=== PATIENT | female | born 1980 | race Caucasian/White ===

== ENCOUNTER 2016-12-28 10:22 | Outpatient (CLI) | payer MEDICAID | END 2016-12-28 10:23 | disposition home or self-care (01) | DX: Z13.9 Encounter for screening, unspecified (principal) ==

== ENCOUNTER 2018-01-07 08:00 | Outpatient (CLI) | payer MEDICAID ==
[2018-01-07 12:41] LABS: BASOPHILS % (AUTO) 0.3 %; EOSINOPHILS # (AUTO) 0.4 10^3/uL (0.0-0.7); EOSINOPHILS % (AUTO) 5.5 %; HGB - HEMOGLOBIN 13.7 g/dL (12.0-16.0); LYMPHOCYTES # (AUTO) 2.2 10^3/uL (1.5-3.5); LYMPHOCYTES % (AUTO) 34.5 %; MEAN CORPUSCULAR HEMOGLOBIN 28.3 pg (27.0-31.0); MEAN CORPUSCULAR HGB CONC 33.8 g/dL (32.0-36.0); MEAN CORPUSCULAR VOLUME 83.7 fL (81.0-99.0); MEAN PLATELET VOLUME 8.5 fL (7.9-10.8); MONOCYTES # (AUTO) 0.5 10^3/uL (0.0-1.0); MONOCYTES % (AUTO) 8.1 %; NEUTROPHILS # (AUTO) 3.3 10^3/uL (1.5-6.6); NEUTROPHILS % (AUTO) 51.6 %; PLT - PLATELET COUNT 154 10^3/uL (130-450); RED BLOOD COUNT 4.85 10^6/uL (4.20-5.40); RED CELL DISTRIBUTION WIDTH 12.6 % (12.0-15.0); WHITE BLOOD COUNT 6.4 x10^3/uL (4.8-10.8)
[2018-01-07 13:27] LABS: ALBUMIN/GLOBULIN RATIO 1.4 (1.0-2.2); ALKALINE PHOSPHATASE 60 IU/L (42-121); ALT ALANINE AMINOTRANSFERASE 12 IU/L (10-60); AST ASPARTATE AMINOTRANSFERASE 18 IU/L (10-42); BILIRUBIN,TOTAL 0.4 mg/dL (0.2-1.0); BUN - BLOOD UREA NITROGEN 8 mg/dL (6-20); CALCIUM 8.4 mg/dL (8.5-10.3); CARBON DIOXIDE - CO2 28 mmol/L (21-32); CHLORIDE 104 mmol/L (101-111); CHOL/HDL RATIO 4.7 (<4.4); CHOLESTEROL 166 mg/dL; CREATININE 0.5 mg/dL (0.4-1.0); GFR - MDRD 140 (>89); GLUCOSE 116 mg/dL (70-100); HDL CHOLESTEROL 35 mg/dL; LDL CHOLESTEROL,CALCULATED 108 mg/dL; LDL/HDL RATIO 3.1 (<4.4); SODIUM 139 mmol/L (135-145); TOTAL PROTEIN 6.9 g/dL (6.7-8.2); VLDL CHOLESTEROL 23 mg/dL
== END 2018-01-07 08:01 | disposition home or self-care (01) ==
LOC: LAB.N 08:00
PROVIDERS: ATTEND Nurse Practitioner Gerontology
DX: Z13.9 Encounter for screening, unspecified (principal)
CPT/HCPCS: 36415; 80053; 80061; 83721; 84443; 85025

== ENCOUNTER 2018-03-18 14:28 | Outpatient (CLI) | payer MEDICAID | END 2018-03-18 14:29 | disposition home or self-care (01) | LOC: LAB.R 14:28 | PROVIDERS: ATTEND Nurse Practitioner Gerontology | DX: R19.7 Diarrhea, unspecified (principal) | CPT/HCPCS: 83630; 87045; 87046; 87177; 87209; 87493 ==

== ENCOUNTER 2018-08-15 13:14 | Emergency (ER) | payer MEDICAID ==
[2018-08-15 13:42] LABS: BILIRUBIN,URINE NEGATIVE (NEGATIVE); GLUCOSE, URINE (UA) NEGATIVE (NEGATIVE); KETONES,URINE (UA) NEGATIVE (NEGATIVE); LEUKOCYTE ESTERASE, URINE NEGATIVE (NEGATIVE); NITRITE,URINE NEGATIVE (NEGATIVE); OCCULT BLOOD,URINE NEGATIVE (NEGATIVE); PROTEIN,URINE NEGATIVE (NEGATIVE); UROBILINOGEN,URINE 0.2 (NORMAL) E.U./dL (NORMAL)
[2018-08-15 13:47] LABS: CLARITY,URINE CLEAR (CLEAR); HCG UR QUAL NEGATIVE
--- NOTE | 2018-08-15 15:50 | ED Physician Documentation ---
PD HPI ABD PAIN - Stated complaint Stated Complaint: ABD PX - Chief complaint Chief Complaint: Abd Pain - History obtained from History obtained from: Patient - History of Present Illness Timing - onset: How many days ago (7-8) Timing - duration: Weeks (1) Timing - details: Gradual onset, Still present, Waxing and waning Quality: Cramping, Aching, Pain. No: Fullness/distended Location: Suprapubic, LLQ Radiation: Lower back Improved by: BM (has feeling of fullness in rectum/lower abd with BMs but just soft stool and some mucous/trace blood out). No: Eating Worsened by: No: Eating Associated symptoms: Hematochezia (trace bloody, mucous). No: Fever, Nausea, Vomiting, Constipation, Near syncope / syncope Similar symptoms before: Has not had sx before Review of Systems Constitutional: reports: Fatigue. denies: Fever, Chills, Myalgias Nose: denies: Rhinorrhea / runny nose, Congestion Throat: denies: Sore throat Cardiac: denies: Chest pain / pressure, Palpitations Respiratory: denies: Dyspnea, Cough GI: reports: Abdominal Pain, Nausea, Diarrhea (soft stools). denies: Abdominal Swelling, Vomiting, Constipation : reports: Dysuria. denies: Frequency, Discharge Skin: denies: Rash Musculoskeletal: reports: Back pain. denies: Neck pain Neurologic: reports: Generalized weakness. denies: Focal weakness, Numbness, Near syncope, Altered mental status PD PAST MEDICAL HISTORY - Past Medical History Cardiovascular: None Respiratory: None Neuro: None GI: None Psych: Depression, Anxiety Musculoskeletal: Chronic back pain - Past Surgical History Past Surgical History: No Ortho: Other - Present Medications Home Medications: Ambulatory Orders Medication Instructions Recorded Confirmed Hydrocodone/Acetaminophen [[place] 1 each PO Q6H PRN #15 tablet 06/07/15 5-325 Tablet] Ibuprofen 600 mg PO TID #20 tablet 06/07/15 Methocarbamol [Robaxin] 500 mg PO Q6H PRN #20 tablet 06/07/15 Cephalexin [Keflex] 500 mg PO TID #21 capsule 08/15/18 Metronidazole [Flagyl] 500 mg PO BID #14 tablet 08/15/18 Naproxen 375 mg PO BID #20 tablet 08/15/18 Ondansetron Odt [Zofran] 4 mg TL Q6H PRN #15 tablet 08/15/18 Oxycodone HCl/Acetaminophen 1 each PO Q6H PRN #20 tablet 08/15/18 [Percocet 5-325 mg Tablet] - Allergies Allergies/Adverse Reactions: Allergies Allergy/AdvReac Type Severity Reaction Status Date / Time No Known Drug Allergies Allergy Verified 08/15/18 13:28 - Social History Does the pt smoke?: No Smoking Status: Never smoker Does the pt drink ETOH?: No - Immunizations Immunizations are current?: Yes PD ED PE NORMAL - Vitals Vital signs reviewed: Yes - General General: Alert and oriented X 3, Well developed/nourished, Other (appears in pain) - HEENT HEENT: Pharynx benign - Neck Neck: Supple, no meningeal sign, No adenopathy - Cardiac Cardiac: RRR (mild tachycardic), No murmur - Respiratory Respiratory: Clear bilaterally - Abdomen Abdomen: Normal bowel sounds, Soft, Non distended, No organomegaly, Other (tender suprapubic and LLQ area without percussion nor rebound tenderness. ) - Rectal Rectal: Deferred - Back Back: No CVA TTP - Derm Derm: Normal color, Warm and dry - Extremities Extremities: No deformity, No tenderness to palpate, No edema, No calf tenderness / cord - Neuro Neuro: Alert and oriented X 3, No motor deficit, Normal speech Results - Vitals Vitals: Vital Signs - 24 hr 08/15/18 08/15/18 13:25 18:05 Temperature 36.3 C L Heart Rate 102 H 89 Respiratory 15 18 Rate Blood Pressure 125/85 H 118/82 H O2 Saturation 98 98 Oxygen O2 Source Room air - Labs Labs: Laboratory Tests 08/15/18 08/15/18 08/15/18 17:30 17:30 Unknown WBC 10.3 RBC 4.65 Hgb 13.5 Hct 39.4 MCV 84.9 MCH 29.1 MCHC 34.3 RDW 12.6 Plt Count 179 MPV 8.2 Neut # (Auto) 6.2 Lymph # (Auto) 3.3 [place] # (Auto) 0.6 Eos # (Auto) 0.2 Baso # (Auto) 0.0 Absolute Nucleated RBC 0.01 Nucleated RBC % 0.0 Sodium 139 Potassium 3.7 Chloride 103 Carbon Dioxide 27 Anion Gap 9.0 BUN 7 Creatinine 0.6 Estimated GFR (MDRD) 112 Glucose 96 Calcium 8.6 Total Bilirubin 0.5 AST 14 ALT 11 Alkaline Phosphatase 69 Total Protein 6.8 Albumin 3.9 Globulin 2.9 Albumin/Globulin Ratio 1.3 Lipase 24 Urine Color YELLOW Urine Clarity CLEAR Urine pH 6.0 Ur Specific [place] <=1.005 Urine Protein NEGATIVE Urine Glucose (UA) NEGATIVE Urine Ketones NEGATIVE Urine Occult Blood NEGATIVE Urine Nitrite NEGATIVE Urine Bilirubin NEGATIVE Urine Urobilinogen 0.2 (NORMAL) Ur Leukocyte Esterase NEGATIVE Ur Microscopic Review NOT INDICATED Urine Culture Comments NOT INDICATED Urine HCG, Qual NEGATIVE - Rads (name of study) abd/pelvic CT Radiology: Prelim report reviewed, Discussed with rads (There is a segment of thickened wall of the colon in the descending colon that could be consistent with colitis or concerning for neoplasm. There is a suggestion of some involuting of the colon into itself, or an early intussuscept of appearance. There is no obstruction pattern however.) PD MEDICAL DECISION MAKING - ED course Complexity details: reviewed results, re-evaluated patient (She is having much less pain after some medications here. She is driving home so no sedating medicines were given. We discussed the CT findings. She is to return if she has significant pain increase, vomiting, bloating, fever, other concerns. Otherwise she is to follow-up with Dr. Snell early this coming week and we will treated as infectious colitis at this point.), considered differential, d/w patient, d/w strategic planning consultant (Margarito Snell, surgery - Who felt that with the patient not having severe pain or obstruction pattern that the involuting findings on the CT scan were transient and not indicative of true intussusception. He said this is an episodic transient finding on CT scans. He is concerned however about the segmental colitis and wall thickening and does feel the patient needs follow-up early this coming week for scheduled colonoscopy to better evaluate that.) Departure - Departure Disposition: 01 Home, Self Care Clinical Impression: Colitis, acute Abdominal pain Qualifiers: Abdominal location: lower abdomen, unspecified Qualified Code(s): R10.30 - Lower abdominal pain, unspecified Condition: Stable Record reviewed to determine appropriate education?: Yes Instructions: Abdominal Pain Follow-Up: Ami Burroughs ARNP [Primary Care Provider] - Margarito Snell MD [Provider Admit Priv/Credential] - Prescriptions: Cephalexin [Keflex] 500 mg PO TID #21 capsule Metronidazole [Flagyl] 500 mg PO BID #14 tablet Naproxen 375 mg PO BID #20 tablet Ondansetron Odt [Zofran] 4 mg TL Q6H PRN #15 tablet PRN Reason: Nausea / Vomiting Oxycodone HCl/Acetaminophen [Percocet 5-325 mg Tablet] 1 each PO Q6H PRN #20 tablet PRN Reason: Pain Comments: Drink lots of fluids. Soft foods for the next several days. Use naproxen anti- inflammatory twice daily for the next 7-10 days. Take it with some food so it does not upset your stomach. Metronidazole and cephalexin antibiotics as directed for the next week for the presumed infection of the colon wall. Ondansetron if needed for nausea. Tylenol or Percocet if needed for pains. Contact Dr. Snell's office Saturday and let them know that you were seen in the ER and we had talked with Dr. Snell and he certainly wants you to have an appointment early this coming week for follow-up evaluation and urgent colonoscopy to further evaluate the colitis. Return to the ER if you have significantly worsening pain, fever, bloating or vomiting, other concerns. Discharge Date/Time: 08/15/18 19:57
[2018-08-15] MEDS ORDERED: KETOROLAC 60 MG/2 ML VIAL IVP STA (16:05)
[2018-08-15 17:56] LABS: BASOPHILS % (AUTO) 0.4 %; EOSINOPHILS # (AUTO) 0.2 10^3/uL (0.0-0.7); HGB - HEMOGLOBIN 13.5 g/dL (12.0-16.0); LYMPHOCYTES # (AUTO) 3.3 10^3/uL (1.5-3.5); LYMPHOCYTES % (AUTO) 31.7 %; MEAN CORPUSCULAR HEMOGLOBIN 29.1 pg (27.0-31.0); MEAN CORPUSCULAR HGB CONC 34.3 g/dL (32.0-36.0); MEAN CORPUSCULAR VOLUME 84.9 fL (81.0-99.0); MEAN PLATELET VOLUME 8.2 fL (7.9-10.8); MONOCYTES # (AUTO) 0.6 10^3/uL (0.0-1.0); MONOCYTES % (AUTO) 5.7 %; NEUTROPHILS # (AUTO) 6.2 10^3/uL (1.5-6.6); NEUTROPHILS % (AUTO) 60.2 %; PLT - PLATELET COUNT 179 10^3/uL (130-450); RED BLOOD COUNT 4.65 10^6/uL (4.20-5.40); RED CELL DISTRIBUTION WIDTH 12.6 % (12.0-15.0); WHITE BLOOD COUNT 10.3 x10^3/uL (4.8-10.8)
[2018-08-15 18:05] VITALS: BP 118/82
[2018-08-15] MEDS ORDERED: IOPAMIDOL-300 100 ML VIAL ONE (18:09)
[2018-08-15 18:10] LABS: ALBUMIN 3.9 g/dL (3.2-5.5); ALBUMIN/GLOBULIN RATIO 1.3 (1.0-2.2); BILIRUBIN,TOTAL 0.5 mg/dL (0.2-1.0); CALCIUM 8.6 mg/dL (8.5-10.3); CREATININE 0.6 mg/dL (0.4-1.0); TOTAL PROTEIN 6.8 g/dL (6.7-8.2)
[2018-08-15] MEDS ORDERED: IOPAMIDOL-300 100 ML VIAL IVP ONE (18:27)
--- NOTE | 2018-08-15 19:22 | CT Report ---
Reason: lower abd pain for several days Procedure Date: 08/15/2018 Accession Number: [id number] / [id number] Procedure: CT - Abdomen/Pelvis W/ CPT Code: FULL RESULT: EXAM: CT ABDOMEN AND PELVIS EXAM DATE: 08/15/2018 06:33 PM. CLINICAL HISTORY: Lower abdominal pain for several days. COMPARISONS: None. TECHNIQUE: Routine helical CT imaging was performed through the abdomen and pelvis. IV contrast: ISOVUE 300 100mL. Enteric contrast: No. Reconstructions: Coronal and sagittal. In accordance with CT protocol optimization, one or more of the following dose reduction techniques were utilized for this exam: automated exposure control, adjustment of mA and/or KV based on patient size, or use of iterative reconstructive technique. FINDINGS: Lung Bases: Unremarkable. Liver: Normal. No masses. Gallbladder/Bile Ducts: Unremarkable. Spleen: Normal. Pancreas: Normal. Adrenal Glands: Normal. Kidneys: Normal. No masses or hydronephrosis. Peritoneal Cavity/Bowel: There is a short segment of circumferential mural thickening involving the mid descending colon suspicious for tumor. There may be a partial intussusception of the colon at this level. No upstream bowel obstruction. At least 2 adjacent subcentimeter mesenteric lymph nodes are seen. The appendix is well visualized and normal. Pelvic Organs: Normal. The bladder and visualized pelvic organs are within normal limits. Vasculature: No aneurysms or other significant abnormality. Bones: No significant abnormality. Other: None. IMPRESSION: 1. Short segment of circumferential mural thickening involving the mid descending colon suspicious for neoplasm. There may also be a partial intussusception involving this segment of bowel. No upstream bowel obstruction. 2. The solid abdominal viscera are unremarkable. RADIA The above findings were discussed with Pepe Fowler by Dr. Lázaro Doyle at 19:20 hrs on 08/15/18.
[2018-08-15] MEDS ORDERED: metroNIDAZOLE 250 MG TABLET PO STA (19:45)
[2018-08-15] MEDS ORDERED: ONDANSETRON ODT 4 MG TABLET TL STA (19:45)
[2018-08-15] MEDS ORDERED: cephALEXin 250 MG CAPSULE PO STA (19:45)
== END 2018-08-15 19:57 | disposition home or self-care (01) ==
LOC: ED 13:14
DX: K52.9 Noninfective gastroenteritis and colitis, unspecified (principal)
CPT/HCPCS: 36415; 74177; 80053; 81003; 81025; 83690; 85025; 96374; 99283; 99284; A9270; Q0162; Q9967; 81001; 87086

== ENCOUNTER 2018-08-21 12:57 | Day surgery (SDC) | payer MEDICAID ==
[2018-08-21 13:27] LABS: HCG UR QUAL NEGATIVE
[2018-08-21] MEDS ORDERED: LACTATED RINGERS 1,000 ML IV ONE (13:42)
[2018-08-21] MEDS ORDERED: fentaNYL 250 MCG/5 ML VIAL IVP ONE (15:11)
[2018-08-21] MEDS ORDERED: MIDAZOLAM 2 MG/2 ML VIAL IVP ONE (15:11)
[2018-08-21 16:33] VITALS: BP 114/81
== END 2018-08-21 12:58 | disposition home or self-care (01) ==
LOC: SDS 12:57
PROVIDERS: ATTEND Internal Medicine Gastroenterology
PROC: 0DBM8ZX Excision of Descending Colon, Via Natural or Artificial Opening Endoscopic, Diagnostic (ICD-10-PCS; principal; 2018-08-21 14:00)
DX: C18.6 Malignant neoplasm of descending colon (principal); K30 Functional dyspepsia; J45.909 Unspecified asthma, uncomplicated; G44.209 Tension-type headache, unspecified, not intractable; E66.9 Obesity, unspecified; Z68.33 Body mass index [BMI] 33.0-33.9, adult; G47.00 Insomnia, unspecified; Z86.69 Personal history of other diseases of the nervous system and sense organs; Z79.51 Long term (current) use of inhaled steroids
CPT/HCPCS: 36415; 45380; 81025; 82378; J3010; J7120

== ENCOUNTER 2018-08-25 08:34 | Outpatient (CLI) | payer MEDICAID ==
[2018-08-25] MEDS ORDERED: IOPAMIDOL-300 100 ML VIAL ONE (08:40)
[2018-08-25] MEDS ORDERED: IOPAMIDOL-300 100 ML VIAL IVP ONE (09:22)
--- NOTE | 2018-08-25 09:31 | CT Report ---
Reason: STAGING FOR COLON CANCER Procedure Date: 08/25/2018 Accession Number: [id number] / [id number] Procedure: CT - Chest W/ CPT Code: FULL RESULT: EXAM: CT CHEST EXAM DATE: 08/25/2018 09:04 AM. CLINICAL HISTORY: STAGING FOR COLON CANCER. COMPARISONS: None. TECHNIQUE: Routine helical CT imaging was performed through the chest. IV contrast: None. Reconstructions: Coronal and sagittal. In accordance with CT protocol optimization, one or more of the following dose reduction techniques were utilized for this exam: automated exposure control, adjustment of mA and/or KV based on patient size, or use of iterative reconstructive technique. FINDINGS: Lungs/Pleura: No nodules, bronchial thickening, consolidation, or edema. Pulmonary vasculature is normal. No pericardial or pleural effusion. No pneumothorax. Mediastinum: Normal. No adenopathy or masses. The heart and great vessels are normal. Bones: Unremarkable. Visualized Abdomen: Unremarkable. Other: None. IMPRESSION: Normal chest CT. No evidence for thoracic metastatic disease. RADIA
== END 2018-08-25 08:35 | disposition home or self-care (01) ==
LOC: DI 08:34
PROVIDERS: ATTEND Internal Medicine Gastroenterology
DX: C18.9 Malignant neoplasm of colon, unspecified (principal)
CPT/HCPCS: 71260; Q9967

== ENCOUNTER 2018-09-08 05:44 | Inpatient (IN) | payer MEDICAID ==
[2018-09-08] MEDS ORDERED: LACTATED RINGERS 1,000 ML IV ONE ×2 (06:15→10:24)
[2018-09-08] MEDS ORDERED: ceFAZolin 2 GM/50 ML 2 GM/50 ML BAG IV ONE (06:34)
[2018-09-08] MEDS ORDERED: metroNIDAZOLE 500 MG/100 ML 500 MG/100 ML BAG ONE (06:34)
[2018-09-08] MEDS ORDERED: LIDOCAINE 1% 50 ML MDV ONE (07:05)
[2018-09-08] MEDS ORDERED: BUPIVACAINE 0.5%-EPI 1:200000 PF 30 ML VIAL ONE (07:05)
--- NOTE | 2018-09-08 07:09 | ANESTHESIA ---
Pre-Anesthesia VS, & Labs - Diagnosis descending colon cancer - Procedure laparoscopic partial sigmoid colectomy Vital Signs: Temp Pulse Resp BP Pulse Ox 36.1 C L 83 16 125/85 H 100 09/08/18 06:30 09/08/18 06:30 09/08/18 06:30 09/08/18 06:30 09/08/18 06:30 Height 5 ft 7 in Weight (kg) 94 kg Body Mass Index 31.3 - NPO >8 hours - Is Patient ?: Waiver signed - Lab Results Lab results reviewed: Yes Home Medications and Allergies Home Medications: Ambulatory Orders Metronidazole 500 mg PO TID 09/08/18 Neomycin Sulfate 500 mg PO TID 09/08/18 Metronidazole 500 mg PO TID 09/08/18 Neomycin Sulfate 500 mg PO TID 09/08/18 Allergies/Adverse Reactions: Allergies Allergy/AdvReac Type Severity Reaction Status Date / Time No Known Drug Allergies Allergy Verified 08/15/18 13:28 Anes History & Medical History - Anesthetic History Anesthesia Complications: reports: No previous complications Family history of Anesthesia Complications: Denies Family history of Malignant Hyperthermia: Denies - Medical History Cardiovascular: reports: None Pulmonary: reports: None Gastrointestinal: reports: Ulcers, Other Urinary: reports: None Neuro: reports: None Musculoskeletal: reports: Chronic back pain Endocrine/Autoimmune: reports: None Skin: reports: None Smoking Status: Never smoker - Surgical History General: Colonoscopy Orthopedic: Other Exam General: Alert, Oriented x3 Dental: WNL Mouth Openin Fingerbreadth Mallampati classification: III Thyromental Distance: 4-6 cm Respiratory: Lungs clear, Normal breath sounds, No respiratory distress, No accessory muscle use Cardiovascular: Regular rate, Normal S1, Normal S2, No murmurs Mental/Cognitive Status: Alert/Oriented X3, Normal for patient Cognitive Status: Within normal limits Plan Anesthesia Type: General Consent for Procedure(s) Verified and Reviewed: Yes Code Status: Attempt Resuscitation ASA classification: 2-Mild systemic disease Is this case an emergency?: No
[2018-09-08] MEDS ORDERED: LIDOCAINE 1% 10 ML MDV SUBQ ONE ×2 (08:25)
[2018-09-08] MEDS ORDERED: BUPIVACAINE 0.5%-EPI 1:200000 PF 30 ML VIAL SUBQ ONE ×2 (08:26)
[2018-09-08] MEDS ORDERED: ONDANSETRON 4 MG/2 ML VIAL IVP ONE (09:00)
[2018-09-08] MEDS ORDERED: KETOROLAC 30 MG/ML VIAL IVP ONE (09:00)
[2018-09-08] MEDS ORDERED: ceFAZolin 2 GM/50 ML BAG IV ONE (09:00)
[2018-09-08] MEDS ORDERED: fentaNYL 100 MCG/2 ML VIAL IVP ONE (09:00)
[2018-09-08] MEDS ORDERED: LIDOCAINE-MPF 2% 5 ML VIAL IM ONE (09:00)
[2018-09-08] MEDS ORDERED: ROCURONIUM 50 MG/5 ML VIAL IVP ONE (09:00)
[2018-09-08] MEDS ORDERED: ACETAMINOPHEN 1,000 MG/100 ML 100 ML IV ONE (09:00)
[2018-09-08] MEDS ORDERED: metroNIDAZOLE 500 PREMIX IV ONE (09:00)
[2018-09-08] MEDS ORDERED: PROPOFOL 200 MG/20 ML VIAL IVP ONE (09:00)
[2018-09-08] MEDS ORDERED: MORPHINE 10 MG/ML VIAL IVP ONE (09:00)
--- NOTE | 2018-09-08 10:49 | OPERATIVE REPORT ---
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 Oral gastric and trinh catheters were inserted. Her abdomen was prepped with Cloroprep solution and draped in the usual sterile fashion. Preop preparation included placement of SCDs and administration of 2 gm of cefazolin and 500 mg of metronidazole IV within 60 minutes of the incision. A 2 cm vertical infraumbilical incision was made and carrried down through the layers of the abdominal wall until the peritoneum was identified and entered sharply. Hemostasis was achieved with electrocautery. A Fuentes cannula was inserted and pneumoperitoneum was achieved with carbon dioxide. A 5 mm 30 degree Kennedy telescope was inserted and laparoscopy was carried out with findings of a normal appearing liver and stomach, and visualized small bowel and omentum. There were no peritoneal implants, ascites or evidence of liver metast ases. 5mm ports were placed in the midepigastrium and right lower quadrant. Pt was placed in partial right lateral decubitus position and the tumor in the descending colon became visible. It showed no gross evidence of extension to adjacent structures but did appear to be transmural at at least one point grossly. The descending colon, proximal sigmoid colon and spenic flexure were mobilized using the ligasure device and gentle blunt traction, mobilizing the distal descending colon sufficient to reach the midline. The Fuentes port was removed and the lower midline incision enlarged to approximately 5 cm in length. A SILS port was placed and the colon adjacent to the tumor was grasped and gently exteriorized through the SILS port incision. An extracorporeal resection and anastomosis was then performed. Margins were chosen 5 cm proximal and distal to the gross margins of the tumor, and the colon was circumferentially mobilized at these points, and the 75 mm linear stapler/cutting device was used to ligate and divide the bowel at these points. The mesentery was ligated and divided near its base using the Ligasure device. There was no gross evidence of lymphadenopathy. The specimen was sent to pathology. A hand sewn end to end anastomosis was then performed in 2 layers, using interruped 3-0 silk sutures for the outer seromuscular layer and continuous locking 3-0 Vicryl for a full th ickness inner layer. Once completed the anastomosis appeared intact, viable, and without tension. The mesenteric defect was wide and was not closed. Gowns, gloves and insturments were changed, the abdominal cavity was copiously irrigated with sterile saline solution, laparoscopic instuments were removed, and the incisions were closed, using 0 PDS for closure of the midline fascia at the infraumbilical incsion, followed by 3-0 Vicryl for subcutaneous tissue closure, followed by 4-0 Monocryl for a subcuticular skin closure and Dermabond at all the incisions. Anesthesia was terminated and pt transferred to the PAR unit in satisfactory condition. Sponge, needle, and instrument counts were correct x 2. No drains were used.
[2018-09-08] MEDS ORDERED: ONDANSETRON 4 MG/2 ML VIAL ONE (11:35)
[2018-09-08] MEDS: SODIUM CHLORIDE FLUSH 0.9% 10 ML SYRINGE IVP PRN ×2 (13:01→14:17)
[2018-09-08] MEDS: ACETAMINOPHEN 1,000 MG/100 ML 100 ML IV SCH ×3 (13:12→22:46)
[2018-09-08] MEDS: LACTATED RINGERS 1,000 ML IV SCH ×2 (13:13→23:44)
[2018-09-08] MEDS: KETOROLAC 30 MG/ML VIAL IVP PRN ×2 (14:17→20:27)
[2018-09-08] MEDS: SODIUM CHLORIDE FLUSH 0.9% 10 ML SYRINGE IVP SCH (16:05)
[2018-09-08] MEDS: ONDANSETRON 4 MG/2 ML VIAL IVP PRN (16:05)
[2018-09-08] MEDS: METOCLOPRAMIDE 10 MG/2 ML VIAL IVP PRN ×3 (17:42→23:52)
[2018-09-08] MEDS: ENOXAPARIN 40 MG/0.4 ML SYRINGE SUBQ SCH (20:26)
[2018-09-08] MEDS: oxyCODONE 5 MG TABLET PO PRN (22:46)
[2018-09-09] MEDS: SODIUM CHLORIDE FLUSH 0.9% 10 ML SYRINGE IVP SCH ×3 (01:48→17:20)
[2018-09-09] MEDS: KETOROLAC 30 MG/ML VIAL IVP PRN ×3 (02:20→17:16)
[2018-09-09] MEDS: oxyCODONE 5 MG TABLET PO PRN ×2 (05:03→17:48)
[2018-09-09] MEDS: ONDANSETRON 4 MG/2 ML VIAL IVP PRN (05:05)
[2018-09-09] MEDS: ACETAMINOPHEN 1,000 MG/100 ML 100 ML IV SCH ×3 (05:06→20:17)
[2018-09-09 05:59] LABS: BASOPHILS % (AUTO) 0.2 %; EOSINOPHILS % (AUTO) 0.1 %; HGB - HEMOGLOBIN 11.4 g/dL (12.0-16.0); LYMPHOCYTES % (AUTO) 16.4 %; MEAN CORPUSCULAR HEMOGLOBIN 28.7 pg (27.0-31.0); MEAN CORPUSCULAR HGB CONC 33.2 g/dL (32.0-36.0); MEAN CORPUSCULAR VOLUME 86.5 fL (81.0-99.0); MEAN PLATELET VOLUME 8.2 fL (7.9-10.8); MONOCYTES # (AUTO) 0.8 10^3/uL (0.0-1.0); MONOCYTES % (AUTO) 6.8 %; NEUTROPHILS # (AUTO) 9.4 10^3/uL (1.5-6.6); NEUTROPHILS % (AUTO) 76.5 %; PLT - PLATELET COUNT 164 10^3/uL (130-450); RED BLOOD COUNT 3.97 10^6/uL (4.20-5.40); RED CELL DISTRIBUTION WIDTH 12.7 % (12.0-15.0); WHITE BLOOD COUNT 12.3 x10^3/uL (4.8-10.8)
[2018-09-09 06:20] LABS: ALBUMIN 3.2 g/dL (3.2-5.5); ALBUMIN/GLOBULIN RATIO 1.4 (1.0-2.2); ALKALINE PHOSPHATASE 56 IU/L (42-121); ALT ALANINE AMINOTRANSFERASE < 10 IU/L (10-60); AST ASPARTATE AMINOTRANSFERASE 14 IU/L (10-42); BILIRUBIN,TOTAL 0.6 mg/dL (0.2-1.0); BUN - BLOOD UREA NITROGEN < 5 mg/dL (6-20); CALCIUM 8.1 mg/dL (8.5-10.3); CARBON DIOXIDE - CO2 28 mmol/L (21-32); CHLORIDE 105 mmol/L (101-111); CREATININE 0.6 mg/dL (0.4-1.0); GFR - MDRD 112 (>89); GLUCOSE 116 mg/dL (70-100); SODIUM 138 mmol/L (135-145); TOTAL PROTEIN 5.5 g/dL (6.7-8.2)
--- NOTE | 2018-09-09 08:50 | PROVIDER PROGRESS NOTE ---
Subjective - General Admit Date: 09/08/18 Procedure Date: 09/08/18 Post Op Days: 1 Procedure Performed: Lap partial left colectomy - Review of Systems Wound/Incisions: positive: Healing well, No drainage General: positive: No symptoms Pulmonary: positive: No symptoms Cardiovascular: positive: No symptoms Gastrointestinal: positive: Nausea (N/V yesterday pm, now resolved), Vomiting (yest pm; now resolved) Musculoskeletal: positive: No symptoms - Other Other Information/Narrative: Had trouble with PO N/V yesterday, now feels much better, hungry, minimal incisional discomfort. Tolerating clear liquids well now. Objective - Patient Data Reviewed Vital Signs: Yes Vital Signs: Vital Signs x48h Temp Pulse Resp BP Pulse Ox 09/09/18 07:55 37.0 C 86 18 104/63 96 09/09/18 04:54 36.4 C L 92 17 103/69 96 Weight: Weight 09/07/18 09/08/18 09/09/18 23:59 23:59 23:59 Weight (kg) 94 kg Intake & Output: Intake and Output Totals x24h 09/07/18 09/08/18 09/09/18 23:59 23:59 23:59 Intake Total 3496.385 300 Output Total 1890 650 Balance 1606.385 -350 - Lab Results Lab Results: 09/09/18 05:18 09/09/18 05:18 Other Lab Results: Lab Results x24hrs 09/09/18 09/09/18 Range/Units 05:18 05:18 WBC 12.3 H (4.8-10.8) x10^3/uL RBC 3.97 L (4.20-5.40) 10^6/uL Hgb 11.4 L (12.0-16.0) g/dL Hct 34.3 L (37.0-47.0) % MCV 86.5 (81.0-99.0) fL MCH 28.7 (27.0-31.0) pg MCHC 33.2 (32.0-36.0) g/dL RDW 12.7 (12.0-15.0) % Plt Count 164 (130-450) 10^3/uL MPV 8.2 (7.9-10.8) fL Neut # (Auto) 9.4 H (1.5-6.6) 10^3/uL Lymph # (Auto) 2.0 (1.5-3.5) 10^3/uL [place] # (Auto) 0.8 (0.0-1.0) 10^3/uL Eos # (Auto) 0.0 (0.0-0.7) 10^3/uL Baso # (Auto) 0.0 (0.0-0.1) 10^3/uL Absolute Nucleated RBC 0.00 x10^3/uL Nucleated RBC % 0.0 /100WBC Sodium 138 (135-145) mmol/L Potassium 3.3 L (3.5-5.0) mmol/L Chloride 105 (101-111) mmol/L Carbon Dioxide 28 (21-32) mmol/L Anion Gap 5.0 L (6-13) BUN < 5 L (6-20) mg/dL Creatinine 0.6 (0.4-1.0) mg/dL Estimated GFR (MDRD) 112 (>89) Glucose 116 H (70-100) mg/dL Calcium 8.1 L (8.5-10.3) mg/dL Total Bilirubin 0.6 (0.2-1.0) mg/dL AST 14 (10-42) IU/L ALT < 10 L (10-60) IU/L Alkaline Phosphatase 56 (42-121) IU/L Total Protein 5.5 L (6.7-8.2) g/dL Albumin 3.2 (3.2-5.5) g/dL Globulin 2.3 (2.1-4.2) g/dL Albumin/Globulin Ratio 1.4 (1.0-2.2) - Current Medications Current Medications: Current Medications Generic Name Dose Route Start Last Admin Trade Name Freq PRN Reason Stop Dose Admin Enoxaparin Sodium 40 mg 09/08/18 20:00 09/08/18 20:26 Lovenox SUBQ 40 mg DAILY MARIXA Administration Acetaminophen 100 mls @ 400 mls/hr 09/08/18 11:00 09/09/18 05:32 Ofirmev IV Infused Q6H MARIXA Infusion Ketorolac Tromethamine 30 mg 09/08/18 10:37 09/09/18 02:20 Toradol Inj (30mg) IVP 09/13/18 10:36 30 mg Q6H PRN Administration PAIN Metoclopramide HCl 10 mg 09/08/18 17:36 09/08/18 23:52 Reglan Inj IVP 10 mg Q2HR PRN Administration Nausea / Vomiting Ondansetron HCl 4 mg 09/08/18 10:37 09/09/18 05:05 Zofran Inj IVP 4 mg Q6H PRN Administration Nausea / Vomiting Oxycodone HCl 5 mg 09/08/18 10:37 09/09/18 05:03 Roxicodone PO 5 mg Q4HR PRN Administration Pain or Fever > 38C (100.4F) Sodium Chloride 10 ml 09/08/18 17:00 09/09/18 01:48 Normal Saline Flush 0.9% IVP Not Given 0100,0900,1700 MARIXA Sodium Chloride 10 ml 09/08/18 10:37 09/08/18 14:17 Normal Saline Flush 0.9% IVP 10 ml PRN PRN Administration NEEDED PER PROVIDER ORDERS - Physical Exam Wound/Incisions: positive: Healing well, No drainage General Appearance: positive: No acute distress, Alert Eyes Bilateral: positive: Normal inspection ENT: positive: ENT inspection nml Neck: positive: Nml inspection Respiratory: positive: Chest non-tender, No respiratory distress, Breath sounds nml Cardiovascular: positive: Regular rate & rhythm, No murmur, No gallop Abdomen: positive: No organomegaly, Nml bowel sounds (active bowel tones), No distention, Tenderness (mild incisional tenderness) Back: positive: Nml inspection Extremities: positive: Non-tender, Nml appearance, No pedal edema. negative: Calf tenderness Neurologic/Psychiatric: positive: Oriented x3 ABX Reporting Has patient been on IV antibiotics over the past 48 hours?: No Impression/Plan - Problem List Problem List: PO Day 1 s/p lap partial left colectomy; doing well. Plan: advance diet and activity as tolerated; d/c trinh. D/c ivf.
[2018-09-09] MEDS: METOCLOPRAMIDE 10 MG/2 ML VIAL IVP PRN ×2 (08:55→16:07)
[2018-09-09] MEDS: POLYETHYLENE GLYCOL 3350 17 GM PACKET PO SCH (08:55)
[2018-09-09] MEDS: ENOXAPARIN 40 MG/0.4 ML SYRINGE SUBQ SCH (09:20)
[2018-09-09] MEDS ORDERED: ALBUTEROL NEB 2.5 MG/3 ML INH PRN (11:31)
[2018-09-09] MEDS: SODIUM CHLORIDE FLUSH 0.9% 10 ML SYRINGE IVP PRN (20:17)
[2018-09-10] MEDS: METOCLOPRAMIDE 10 MG/2 ML VIAL IVP PRN (00:22)
[2018-09-10] MEDS: ACETAMINOPHEN 1,000 MG/100 ML 100 ML IV SCH ×4 (00:27→20:20)
[2018-09-10] MEDS: SODIUM CHLORIDE FLUSH 0.9% 10 ML SYRINGE IVP SCH ×3 (00:31→17:51)
[2018-09-10] MEDS: SODIUM CHLORIDE FLUSH 0.9% 10 ML SYRINGE IVP PRN ×5 (00:44→20:20)
[2018-09-10] MEDS: KETOROLAC 30 MG/ML VIAL IVP PRN ×3 (05:36→17:51)
--- NOTE | 2018-09-10 07:25 | PROVIDER PROGRESS NOTE ---
Subjective - General Admit Date: 09/08/18 Procedure Date: 09/08/18 Post Op Days: 2 Procedure Performed: Lap partial left colectomy - Review of Systems Wound/Incisions: positive: Healing well, No drainage General: positive: No symptoms, Appetite (tolerating liquids well) Pulmonary: positive: No symptoms Cardiovascular: positive: No symptoms Gastrointestinal: positive: Abdominal pain (incisional, well controlled with non narcotic parenteral analgesics). negative: Flatus (no flatus or stool yet) Genitourinary: positive: No symptoms (voiding well) Musculoskeletal: positive: No symptoms Psychiatric: positive: No symptoms Objective - Patient Data Reviewed Vital Signs: Yes Vital Signs: Vital Signs x48h Temp Pulse Resp BP Pulse Ox 09/10/18 00:10 36.7 C 87 16 121/69 94 Weight: Weight 09/08/18 09/09/18 09/10/18 23:59 23:59 23:59 Weight (kg) 94 kg Intake & Output: Intake and Output Totals x24h 09/08/18 09/09/18 09/10/18 23:59 23:59 23:59 Intake Total 3496.385 2220 200 Output Total 1890 650 Balance 4034.101 4287 200 - Lab Results Lab Results: 09/09/18 05:18 09/09/18 05:18 - Current Medications Current Medications: Current Medications Generic Name Dose Route Start Last Admin Trade Name Freq PRN Reason Stop Dose Admin Enoxaparin Sodium 40 mg 09/08/18 20:00 09/09/18 09:20 Lovenox SUBQ 40 mg DAILY MARIXA Administration Acetaminophen 100 mls @ 400 mls/hr 09/09/18 13:30 09/10/18 06:52 Ofirmev IV Infused Q6H MARIXA Infusion Ketorolac Tromethamine 30 mg 09/08/18 10:37 09/10/18 05:36 Toradol Inj (30mg) IVP 09/13/18 10:36 30 mg Q6H PRN Administration PAIN Metoclopramide HCl 10 mg 09/08/18 17:36 09/10/18 00:22 Reglan Inj IVP 10 mg Q2HR PRN Administration Nausea / Vomiting Ondansetron HCl 4 mg 09/08/18 10:37 09/09/18 05:05 Zofran Inj IVP 4 mg Q6H PRN Administration Nausea / Vomiting Oxycodone HCl 5 mg 09/08/18 10:37 09/09/18 17:48 Roxicodone PO 5 mg Q4HR PRN Administration Pain or Fever > 38C (100.4F) Polyethylene Glycol 17 gm 09/09/18 09:00 09/09/18 08:55 Miralax PO 17 gm DAILY MARIXA Administration Sodium Chloride 10 ml 09/08/18 17:00 09/10/18 00:31 Normal Saline Flush 0.9% IVP 10 ml 0100,0900,1700 MARIXA Administration Sodium Chloride 10 ml 09/08/18 10:37 09/10/18 06:52 Normal Saline Flush 0.9% IVP 10 ml PRN PRN Administration NEEDED PER PROVIDER ORDERS - Physical Exam Wound/Incisions: positive: Healing well General Appearance: positive: No acute distress, Alert Eyes Bilateral: positive: Normal inspection, Conjunctivae nml, No scleral icterus ENT: positive: ENT inspection nml, Pharynx nml, No signs of dehydration Neck: positive: Nml inspection, No JVD Respiratory: positive: Chest non-tender, No respiratory distress, Breath sounds nml. negative: Wheezes, Rales, Rhonchi Abdomen: positive: Nml bowel sounds (loud active bowel tones), No distention, Tenderness (mild incisional tenderness ow soft, nontender). negative: Hepatomegaly, Splenomegaly, Mass Extremities: positive: Non-tender, Nml appearance, No pedal edema. negative: Calf tenderness Neurologic/Psychiatric: positive: Oriented x3 ABX Reporting Has patient been on IV antibiotics over the past 48 hours?: No Impression/Plan - Problem List Problem List: Satisfactory postop course, PO Day #2 s/p partial left colectomy for carcinoma. PLan: advance diet, increase activity today; home tomorrow if continues to improve.
[2018-09-10] MEDS: ENOXAPARIN 40 MG/0.4 ML SYRINGE SUBQ SCH (08:14)
[2018-09-10] MEDS: POLYETHYLENE GLYCOL 3350 17 GM PACKET PO SCH (08:14)
[2018-09-11] MEDS: ACETAMINOPHEN 1,000 MG/100 ML 100 ML IV SCH ×2 (01:49→07:35)
[2018-09-11] MEDS: SODIUM CHLORIDE FLUSH 0.9% 10 ML SYRINGE IVP SCH ×2 (01:49→08:29)
[2018-09-11] MEDS: KETOROLAC 30 MG/ML VIAL IVP PRN (06:43)
--- NOTE | 2018-09-11 07:20 | PROVIDER PROGRESS NOTE ---
Subjective - General Admit Date: 09/08/18 Procedure Date: 09/08/18 Post Op Days: 3 Procedure Performed: Lap partial left colectomy - Review of Systems Wound/Incisions: positive: Healing well General: positive: No symptoms, Appetite (tolerating low fiber diet and liquids well) Pulmonary: positive: No symptoms Cardiovascular: positive: No symptoms Gastrointestinal: positive: Abdominal pain (incisional, well controlled with non narcotic parenteral analgesics), Flatus (passing flatus and stool since yester day) Genitourinary: positive: No symptoms (voiding well) Musculoskeletal: positive: No symptoms Psychiatric: positive: No symptoms - Other Other Information/Narrative: tolerating low fiber diet well; multiple bm's over past 24 hours Objective - Patient Data Reviewed Vital Signs: Yes Vital Signs: Vital Signs x48h Temp Pulse Resp BP Pulse Ox 09/11/18 00:00 36.6 C 81 18 118/75 99 Intake & Output: Intake and Output Totals x24h 09/09/18 09/10/18 09/11/18 23:59 23:59 23:59 Intake Total 2220 1950 100 Output Total 650 Balance 1570 1950 100 - Lab Results Lab Results: 09/09/18 05:18 09/09/18 05:18 - Current Medications Current Medications: Current Medications Generic Name Dose Route Start Last Admin Trade Name Freq PRN Reason Stop Dose Admin Enoxaparin Sodium 40 mg 09/08/18 20:00 09/10/18 08:14 Lovenox SUBQ 40 mg DAILY MARIXA Administration Acetaminophen 100 mls @ 400 mls/hr 09/09/18 13:30 09/11/18 02:15 Ofirmev IV Infused Q6H MARIXA Infusion Ketorolac Tromethamine 30 mg 09/08/18 10:37 09/11/18 06:43 Toradol Inj (30mg) IVP 09/13/18 10:36 30 mg Q6H PRN Administration PAIN Metoclopramide HCl 10 mg 09/08/18 17:36 09/10/18 00:22 Reglan Inj IVP 10 mg Q2HR PRN Administration Nausea / Vomiting Ondansetron HCl 4 mg 09/08/18 10:37 09/09/18 05:05 Zofran Inj IVP 4 mg Q6H PRN Administration Nausea / Vomiting Oxycodone HCl 5 mg 09/08/18 10:37 09/09/18 17:48 Roxicodone PO 5 mg Q4HR PRN Administration Pain or Fever > 38C (100.4F) Polyethylene Glycol 17 gm 09/09/18 09:00 09/10/18 08:14 Miralax PO 17 gm DAILY MARIXA Administration Sodium Chloride 10 ml 09/08/18 17:00 09/11/18 01:49 Normal Saline Flush 0.9% IVP 10 ml 0100,0900,1700 MARIXA Administration Sodium Chloride 10 ml 09/08/18 10:37 09/10/18 20:20 Normal Saline Flush 0.9% IVP 10 ml PRN PRN Administration NEEDED PER PROVIDER ORDERS - Physical Exam Wound/Incisions: positive: Healing well, No drainage General Appearance: positive: No acute distress, Alert Eyes Bilateral: positive: Normal inspection Neck: positive: Nml inspection, No JVD Respiratory: positive: Chest non-tender, No respiratory distress, Breath sounds nml Abdomen: positive: Nml bowel sounds, No distention, Tenderness (minimal incisional) Skin: positive: Color nml, Warm, Dry Extremities: positive: No pedal edema. negative: Calf tenderness Neurologic/Psychiatric: positive: Oriented x3 Comments/Other: Tolerating low fiber diet ,ambulating, voiding, and moving bowels well. ABX Reporting Has patient been on IV antibiotics over the past 48 hours?: No Impression/Plan - Problem List Problem List: Doing well PO day 3 s/p lap assisted partial left colectomy Plan: d/c home today; usual precautions, non narcotic analgesics, RTO 2 weeks
--- NOTE | 2018-09-11 07:27 | Discharge Plan ---
Discharge Plan Disposition: 01 Home, Self Care Condition: Good Diet: Regular (no raw vegetables or nuts for 2 weeks) Activity Restrictions: see d/c instructions Shower Restrictions: No (no baths for 1 week) Driving Restrictions: Yes (no driving for 1 week) Weight Bearing: Full Weight Additional Instructions or Follow Up instructions: f/u with Dr. Snell in 2 weeks; call [phone] if you don't already have an appointment. No Smoking: If you smoke, Please STOP! Call for help. Follow-up with: Ami Burroughs ARNP [Primary Care Provider] -
--- NOTE | 2018-09-11 07:30 | DISCHARGE SUMMARY ---
"Discharge Summary Admit Date: 09/08/18 Discharge Date: 09/11/18 Discharging Provider: Dr. Margarito Snell Primary Care Provider: Ami Burroughs Code Status: Attempt Resuscitation Condition at Discharge: Good Discharge Disposition: 01 Home, Self Care Discharge Facility Name: [facility] - DIAGNOSES Admission Diagnoses: Descending colon cancer Discharge Diagnoses with Status of Each Condition: Same, s/p lap assisted partial left colectomy - HPI History of Present Illness: See previous dictated H&P - CONSULTS | PROCEDURES Procedures: 09/08/2018: Laparoscopic assisted partial left colectomy - HOSPITAL COURSE Hospital Course: Uncomplicated. Pt's pain was well controlled with non narcotic analgesia; ERAS protocol was followed and by the day of d/c pt was afebrile, with stable vs, jered erating a low fiber diet, ambulating, voiding, and moving her bowels well. - ALLERGIES Allergies/Adverse Reactions: Allergies Allergy/AdvReac Type Severity Reaction Status Date / Time No Known Drug Allergies Allergy Verified 08/15/18 13:28 - MEDICATIONS Home Medications: Ambulatory Orders Medication Instructions Recorded Confirmed Acetaminophen 650 mg PO Q6H PRN #30 tablet 09/11/18 Ibuprofen 600 mg PO Q6H PRN #30 tablet 09/11/18 Polyethylene Glycol 3350 [Miralax] 17 gm PO DAILY #1 bottle 09/11/18 - PHYSICAL EXAM AT DISCHARGE General Appearance: positive: No acute distress, Alert Neck: positive: No JVD Respiratory: positive: Chest non-tender, No respiratory distress, Breath sounds nml Abdomen: positive: Nml bowel sounds, No distention, Tenderness (minimal incisional) Skin: positive: Color nml, Warm, Dry Extremities: positive: Non-tender, No pedal edema. negative: Calf tenderness Neurologic/Psychiatric: positive: Oriented x3 - LABS Result Diagrams: 09/09/18 05:18 09/09/18 05:18 - FOLLOW UP Follow Up: With Dr. Snell in 2 weeks - TIME SPENT Time Spent in Discharge (Minutes): 30"
[2018-09-11] MEDS: SODIUM CHLORIDE FLUSH 0.9% 10 ML SYRINGE IVP PRN (07:37)
[2018-09-11 08:12] VITALS: BP 124/58
[2018-09-11] MEDS: ENOXAPARIN 40 MG/0.4 ML SYRINGE SUBQ SCH (08:32)
[2018-09-11] MEDS: POLYETHYLENE GLYCOL 3350 17 GM PACKET PO SCH (08:32)
== END 2018-09-11 10:11 | disposition home or self-care (01) | DRG 331 ==
LOC: MS2 05:44
PROVIDERS: ADMIT Internal Medicine Gastroenterology; ATTEND Internal Medicine Gastroenterology
PROC: 0DBG0ZZ Excision of Left Large Intestine, Open Approach (ICD-10-PCS; principal; 2018-09-08 07:30)
DX: C18.6 Malignant neoplasm of descending colon (principal); J45.909 Unspecified asthma, uncomplicated; E66.9 Obesity, unspecified; Z68.33 Body mass index [BMI] 33.0-33.9, adult
CPT/HCPCS: 36415; 80053; 85025

== ENCOUNTER 2018-10-09 11:28 | Outpatient (CLI) | payer MEDICAID ==
[2018-10-09 12:24] LABS: BASOPHILS % (AUTO) 0.4 %; EOSINOPHILS # (AUTO) 0.2 10^3/uL (0.0-0.7); HGB - HEMOGLOBIN 13.3 g/dL (12.0-16.0); LYMPHOCYTES # (AUTO) 2.5 10^3/uL (1.5-3.5); LYMPHOCYTES % (AUTO) 30.8 %; MEAN CORPUSCULAR HGB CONC 34.1 g/dL (32.0-36.0); MONOCYTES # (AUTO) 0.5 10^3/uL (0.0-1.0); MONOCYTES % (AUTO) 6.8 %; NEUTROPHILS # (AUTO) 4.7 10^3/uL (1.5-6.6); PLT - PLATELET COUNT 175 10^3/uL (130-450); RED CELL DISTRIBUTION WIDTH 13.1 % (12.0-15.0)
[2018-10-09 12:44] LABS: ALBUMIN 4.2 g/dL (3.2-5.5); ALBUMIN/GLOBULIN RATIO 1.4 (1.0-2.2); BILIRUBIN,TOTAL 0.6 mg/dL (0.2-1.0); CALCIUM 8.8 mg/dL (8.5-10.3); CREATININE 0.7 mg/dL (0.4-1.0); TOTAL PROTEIN 7.1 g/dL (6.7-8.2)
--- NOTE | 2018-10-09 14:02 | XRAY Report ---
Reason: COLON CANCER,DESCENDING COLON,STAGE 3 Procedure Date: 10/09/2018 Accession Number: [id number] / [id number] Procedure: XR - Chest 2 View X-Ray CPT Code: 26487 FULL RESULT: EXAM: CHEST RADIOGRAPHY EXAM DATE: 10/09/2018 11:56 AM. CLINICAL HISTORY: Colon cancer, descending colon, stage 3. COMPARISON: CHEST 2 VIEW PA/LAT 06/07/2015 5:54 PM. TECHNIQUE: 2 views. FINDINGS: Lungs/Pleura: No focal opacities evident. No pleural effusion. No pneumothorax. Normal volumes. Mediastinum: Heart and mediastinal contours are unremarkable. Other: None. IMPRESSION: Normal 2-view chest radiography. RADIA
== END 2018-10-09 11:29 | disposition home or self-care (01) ==
LOC: DI 11:28
PROVIDERS: ATTEND Internal Medicine Gastroenterology
DX: C18.6 Malignant neoplasm of descending colon (principal)
CPT/HCPCS: 36415; 71046; 80053; 85025

== ENCOUNTER 2018-10-13 09:30 | Day surgery (SDC) | payer MEDICAID ==
[2018-10-13] MEDS ORDERED: ceFAZolin 2 GM/50 ML 2 GM/50 ML BAG IV ONE (09:43)
[2018-10-13] MEDS ORDERED: LACTATED RINGERS 1,000 ML IV ONE (10:07)
--- NOTE | 2018-10-13 10:18 | ANESTHESIA ---
Pre-Anesthesia VS, & Labs - Diagnosis Colon cancer - Procedure Portacath Vital Signs: Temp Pulse Resp BP Pulse Ox 36.6 C 88 16 116/62 96 10/13/18 09:55 10/13/18 09:55 10/13/18 09:55 10/13/18 09:55 10/13/18 09:55 Height 5 ft 7 in Weight (kg) 94.2 kg Body Mass Index 32.6 - NPO >8 hours Last Fluid Intake: Water at 0330 - Is Patient ?: Waiver signed - Lab Results Lab results reviewed: Yes Home Medications and Allergies Allergies/Adverse Reactions: Allergies Allergy/AdvReac Type Severity Reaction Status Date / Time No Known Drug Allergies Allergy Verified 08/15/18 13:28 Anes History & Medical History - Anesthetic History Anesthesia Complications: reports: No previous complications Family history of Anesthesia Complications: Denies Family history of Malignant Hyperthermia: Denies - Medical History Cardiovascular: reports: None Pulmonary: reports: None, Asthma Gastrointestinal: reports: Ulcers, Other Urinary: reports: None Neuro: reports: None, Seizure disorder Musculoskeletal: reports: None, Chronic back pain Endocrine/Autoimmune: reports: None Blood Disorders: reports: None Skin: reports: None Smoking Status: Never smoker Psychosocial: reports: No issues indicated - Surgical History General: Colonoscopy Orthopedic: Other (Left ankle ORIF) Exam General: Alert Dental: WNL Mouth Opening: Greater than 4 Fingerbreadths Neck Mobility: Normal Mallampati classification: II Thyromental Distance: greater than 6 cm Respiratory: Lungs clear Cardiovascular: Regular rate Neurological: Normal speech Mental/Cognitive Status: Alert/Oriented X3 Cognitive Status: Within normal limits Plan Anesthesia Type: MAC Consent for Procedure(s) Verified and Reviewed: Yes Code Status: Attempt Resuscitation ASA classification: 2-Mild systemic disease Is this case an emergency?: No
[2018-10-13] MEDS ORDERED: LIDOCAINE-MPF 2% 5 ML VIAL IM ONE (11:38)
[2018-10-13] MEDS ORDERED: ONDANSETRON 4 MG/2 ML VIAL IVP ONE (11:38)
[2018-10-13] MEDS ORDERED: KETOROLAC 30 MG/ML VIAL IVP ONE (11:38)
[2018-10-13] MEDS ORDERED: PROPOFOL 200 MG/20 ML VIAL IVP ONE (11:38)
[2018-10-13] MEDS ORDERED: ceFAZolin 1 GM VIAL IR ONE (11:48)
[2018-10-13] MEDS ORDERED: LIDOCAINE 1% 50 ML MDV SUBQ ONE ×2 (11:48)
[2018-10-13] MEDS ORDERED: HYDROmorphone 0.5 MG/0.5 ML SYRINGE IVP PRN (12:44)
[2018-10-13] MEDS ORDERED: ONDANSETRON 4 MG/2 ML VIAL IVP PRN (12:44)
[2018-10-13] MEDS ORDERED: HYDROcod/ACETAM 5/325 MG TABLET PO PRN (12:44)
[2018-10-13] MEDS ORDERED: DEXAMETHASONE 4 MG/ML VIAL ONE (13:30)
--- NOTE | 2018-10-13 13:51 | XRAY Report ---
Reason: PORT A CATH PLACEMENT Procedure Date: 10/13/2018 Accession Number: [id number] / [id number] Procedure: FL - OR Port-A-Cath CPT Code: FULL RESULT: EXAM: FLUOROSCOPIC GUIDANCE EXAM DATE: 10/13/2018 12:12 PM. CLINICAL HISTORY: PORT A CATH PLACEMENT. COMPARISON: None. FINDINGS: 10 Image Fluoro Loop demonstrating central venous catheter terminating at the superior cavoatrial junction. IMPRESSION: Fluoroscopic guidance provided for chest port placement. Total fluoroscopy time: 0.1 minutes. Number of images: 10 Frame cine capture. RADIA
[2018-10-13] MEDS ORDERED: oxyCODONE 5 MG TABLET ONE (14:02)
--- NOTE | 2018-10-13 14:36 | XRAY Report ---
Reason: Picc line placement Procedure Date: 10/13/2018 Accession Number: [id number] / [id number] Procedure: XR - Chest for Line Placement CPT Code: FULL RESULT: EXAM: CHEST RADIOGRAPHY EXAM DATE: 10/13/2018 01:21 PM. CLINICAL HISTORY: 38-year-old female post Port-A-Cath line placement. COMPARISON: CHEST 2 VIEW 10/09/2018 11:46 AM. TECHNIQUE: 1311 hour AP upright portable view. FINDINGS: Artifactual density overlying left upper lateral chest and chest wall extending over the left arm. Lungs/Pleura: No focal opacities evident. No pleural effusion. No pneumothorax. Mediastinum: Within exam limitations, the cardiomediastinal contour is normal. No adenopathy or pulmonary vascular congestion. Other: Trachea is midline. Osseous structures appear normal. Left-sided Port-A-Cath in good position with the distal tip in the mid SVC. IMPRESSION: Left-sided Port-A-Cath in good position with distal tip in mid SVC. No pneumothorax or post procedure complication. Artifactual density overlying left upper lateral chest, left chest wall and left arm. RADIA
[2018-10-13 14:39] VITALS: BP 115/61
--- NOTE | 2018-10-13 18:13 | OPERATIVE REPORT ---
DATE OF SERVICE: 10/13/2018 Physician: Margarito Snell MD DATE OF PROCEDURE: 10/13/2018 PREOPERATIVE DIAGNOSES: Stage III colon cancer. POSTOPERATIVE DIAGNOSES: Stage III colon cancer. PROCEDURE PERFORMED: Insertion of a PowerPort implantable venous access device. ANESTHESIA: General laryngeal mask anesthesia by Dr. Islas SURGEON: Margarito Snell MD ESTIMATED BLOOD LOSS: Minimal. COMPLICATIONS: None. FINDINGS: Vascular access was obtained via the left subclavian vein. [place] was placed in the left infraclavicular fossa. Catheter tip was positioned in the superior vena cava. Standard profile single-lumen PowerPort catheter was used. INDICATIONS: The patient is a 38-year-old with a recent diagnosis of stage III colon cancer. She was advised to undergo adjuvant chemotherapy and is in need of venous access to facilitate same. TECHNIQUE: After informed consent, the patient was taken to the operating room where she was sedated and monitored. Preoperative preparation included administration of 2 grams cefazolin intravenously within an hour of the incision and application of sequential calf compression boots placed under general laryngeal mask anesthesia, her anterior neck and chest wall were prepared with ChloraPrep solution and draped in the usual sterile fashion. The patient was placed in steep Trendelenburg position and a needle syringe were used to access the left subclavian vein via an infraclavicular approach. A guidewire was passed through the needle into the central venous circulation and location was confirmed with fluoroscopy. The tract was dilated, following which, an 8-[place] Silastic single lumen catheter was passed into the central venous circulation, catheter tip was positioned in superior vena cava using fluoroscopy, 1% lidocaine plain was used for local infiltration anesthesia for creation of the subcutaneous pocket. A total of 15 mL of the mixture was used. A 3 cm incision was made beginning at the catheter exit site and extending medially, extended down into subcutaneous tissues. Hemostasis achieved with electrocautery. Subcutaneous pocket was created was sufficient size to allow for placement of the reservoir. After hemostasis was assured, the wound was irrigated with antibiotic solution containing a gram of cefazolin per liter. The catheter was trimmed to appropriate length, attached to the hub of the reservoir. The locking device was used to lock the catheter onto the hub of the reservoir. The reservoir was placed in the pocket and it was secured to the pectoral fascia with two 3-0 Prolene sutures. After hemostasis assured, the wound was irrigated with antibiotic solution, following which wound closure was accomplished in layers using continuous 3-0 Vicryl reapproximating subcutaneous tissues, and 4-0 Monocryl for subcuticular skin closure, followed by Dermabond. Piper needle and syringe were used to aspirate the reservoir percutaneously. It was seen to aspirate blood easily and the system was flushed with 10 mL of sterile saline. Anesthesia was terminated and patient transferred to the Recovery Room in satisfactory condition. Sponge and needle counts correct x2. No drains used. Followup portable upright chest x-ray is pending. TD: 10/13/2018 13:08 AUGUSTINE
== END 2018-10-13 09:31 | disposition home or self-care (01) ==
LOC: SDS 09:30
PROVIDERS: ATTEND Internal Medicine Gastroenterology
PROC: 02HV33Z Insertion of Infusion Device into Superior Vena Cava, Percutaneous Approach (ICD-10-PCS; 2018-10-13)
PROC: 0JH60WZ Insertion of Totally Implantable Vascular Access Device into Chest Subcutaneous Tissue and Fascia, Open Approach (ICD-10-PCS; principal; 2018-10-13 10:30)
DX: C18.6 Malignant neoplasm of descending colon (principal); J45.909 Unspecified asthma, uncomplicated; E66.9 Obesity, unspecified; Z68.32 Body mass index [BMI] 32.0-32.9, adult
CPT/HCPCS: 36561; A9270; C1788; J0690; J7120; 71045

== ENCOUNTER 2018-10-25 21:37 | Outpatient (CLI) | payer MEDICAID | END 2018-10-25 21:38 | disposition critical access hospital (66) | LOC: EMS 21:37 | PROVIDERS: ATTEND Surgery | DX: R07.9 Chest pain, unspecified (principal); R06.02 Shortness of breath | CPT/HCPCS: A0425; A0427; A0999 ==

== ENCOUNTER 2019-03-25 08:20 | Outpatient (CLI) | payer MEDICAID ==
[2019-03-25] MEDS ORDERED: IOVERSOL 320 100 ML VIAL IVP ONE ×2 (08:48→09:52)
[2019-03-25] MEDS ORDERED: IOVERSOL 320 50 ML VIAL ONE (08:48)
[2019-03-25] MEDS ORDERED: IOVERSOL 320 50 ML VIAL PO ONE (09:52)
--- NOTE | 2019-03-25 12:32 | CT Report ---
Reason: COLON CA Procedure Date: 03/25/2019 Accession Number: [id number] / [id number] Procedure: CT - CHEST W CPT Code: FULL RESULT: EXAM: CT CHEST, ABDOMEN AND PELVIS EXAM DATE: 03/25/2019 09:50 AM. CLINICAL HISTORY: Colon CA. COMPARISONS: ABDOMEN/PELVIS W/ 08/15/2018 6:29 PM CHEST W/ 03/25/2019 9:43 AM CHEST W/ 08/25/2018 8:59 AM. TECHNIQUE: Routine helical CT imaging was performed through the chest, abdomen, and pelvis. IV contrast: OPTI 320 100ML. Enteric contrast: No. Reconstructions: Coronal and sagittal. In accordance with CT protocol optimization, one or more of the following dose reduction techniques were utilized for this exam: automated exposure control, adjustment of mA and/or KV based on patient size, or use of iterative reconstructive technique. FINDINGS: Lungs/Pleura: A 2 mm pulmonary nodule in the left lower lobe on image 43 series 3 is stable. No nodules, bronchial thickening, consolidation, or edema. Pulmonary vasculature is normal. No effusions or pneumothorax. Mediastinum: Normal. No adenopathy or masses. Liver: A subcentimeter left lobe of the liver hypodensity seen on image 21 series 3 is stable and too small to characterize. Gallbladder/Bile Ducts: Unremarkable. Spleen: Borderline mild splenomegaly, 12.7 cm, new finding. Pancreas: Normal. Adrenal Glands: Normal. Kidneys: Normal. No masses or hydronephrosis. Peritoneal Cavity/Bowel: Patient is status post interval partial descending colectomy. No free fluid, free air or adenopathy. No masses or acute inflammatory process. The appendix is well visualized and normal. Pelvic Organs: Normal. The bladder and visualized pelvic organs are within normal limits. Vasculature: No aneurysms or other significant abnormality. Bones: No aggressive osseous lesions. Other: None. IMPRESSION: Interval partial colectomy with no evidence of recurrent/residual disease. Interval development of top normal splenic size, nonspecific but possibly treatment related. RADIA
--- NOTE | 2019-03-25 12:32 | CT Report ---
Reason: COLON CA Procedure Date: 03/25/2019 Accession Number: [id number] / [id number] Procedure: CT - Abdomen/Pelvis W CPT Code: FULL RESULT: EXAM: CT CHEST, ABDOMEN AND PELVIS EXAM DATE: 03/25/2019 09:50 AM. CLINICAL HISTORY: Colon CA. COMPARISONS: ABDOMEN/PELVIS W/ 08/15/2018 6:29 PM CHEST W/ 03/25/2019 9:43 AM CHEST W/ 08/25/2018 8:59 AM. TECHNIQUE: Routine helical CT imaging was performed through the chest, abdomen, and pelvis. IV contrast: OPTI 320 100ML. Enteric contrast: No. Reconstructions: Coronal and sagittal. In accordance with CT protocol optimization, one or more of the following dose reduction techniques were utilized for this exam: automated exposure control, adjustment of mA and/or KV based on patient size, or use of iterative reconstructive technique. FINDINGS: Lungs/Pleura: A 2 mm pulmonary nodule in the left lower lobe on image 43 series 3 is stable. No nodules, bronchial thickening, consolidation, or edema. Pulmonary vasculature is normal. No effusions or pneumothorax. Mediastinum: Normal. No adenopathy or masses. Liver: A subcentimeter left lobe of the liver hypodensity seen on image 21 series 3 is stable and too small to characterize. Gallbladder/Bile Ducts: Unremarkable. Spleen: Borderline mild splenomegaly, 12.7 cm, new finding. Pancreas: Normal. Adrenal Glands: Normal. Kidneys: Normal. No masses or hydronephrosis. Peritoneal Cavity/Bowel: Patient is status post interval partial descending colectomy. No free fluid, free air or adenopathy. No masses or acute inflammatory process. The appendix is well visualized and normal. Pelvic Organs: Normal. The bladder and visualized pelvic organs are within normal limits. Vasculature: No aneurysms or other significant abnormality. Bones: No aggressive osseous lesions. Other: None. IMPRESSION: Interval partial colectomy with no evidence of recurrent/residual disease. Interval development of top normal splenic size, nonspecific but possibly treatment related. RADIA
== END 2019-03-25 08:21 | disposition home or self-care (01) ==
LOC: DI 08:20
PROVIDERS: ATTEND Internal Medicine
DX: C18.6 Malignant neoplasm of descending colon (principal); Z90.49 Acquired absence of other specified parts of digestive tract
CPT/HCPCS: 71260; 74177; Q9967; 36415; 80053; 82378; 85025

== ENCOUNTER 2019-09-15 10:54 | Day surgery (SDC) | payer MEDICAID ==
[2019-09-15] MEDS ORDERED: LACTATED RINGERS 1,000 ML IV ONE ×2 (11:22→13:22)
[2019-09-15 11:37] LABS: HCG UR QUAL NEGATIVE
[2019-09-15] MEDS ORDERED: fentaNYL 250 MCG/5 ML VIAL IVP ONE (12:06)
[2019-09-15] MEDS ORDERED: MIDAZOLAM 2 MG/2 ML VIAL IVP ONE (12:06)
[2019-09-15] MEDS ORDERED: ONDANSETRON 4 MG/2 ML VIAL ONE (13:26)
[2019-09-15 13:56] VITALS: BP 103/64
== END 2019-09-15 10:55 | disposition home or self-care (01) ==
LOC: SDS 10:54
PROVIDERS: ATTEND Internal Medicine Gastroenterology
PROC: 0DBM8ZX Excision of Descending Colon, Via Natural or Artificial Opening Endoscopic, Diagnostic (ICD-10-PCS; principal; 2019-09-15 12:45)
DX: Z08 Encounter for follow-up examination after completed treatment for malignant neoplasm (principal); Z85.038 Personal history of other malignant neoplasm of large intestine; Z98.0 Intestinal bypass and anastomosis status; J45.909 Unspecified asthma, uncomplicated; Z90.49 Acquired absence of other specified parts of digestive tract
CPT/HCPCS: 45380; 81025; J3010; J7120

== ENCOUNTER 2019-12-20 21:14 | Emergency (ER) | payer MEDICAID ==
[2019-12-20 21:25] VITALS: BP 124/93
--- NOTE | 2019-12-20 21:28 | ED Physician Documentation ---
History of Present Illness - Stated complaint Stated Complaint: ABD PX/VOM/HEADACHE - Chief complaint Chief Complaint: Abd Pain - History obtained from History obtained from: Patient (Patient is a 39-year-old female presents with a chief complaint of abdominal pain. She also reports vomiting she denies diarrhea or constipation approximately 1 year ago she had a partial colon resection for colon cancer. She otherwise reports that she is healthy and up-to-date on her immunizations she denies any dysuria hematuria or flank pain. She denies any fevers or chills. she reports her Colon resection was done here at [facility].She denies any vaginal bleeding or discharge or pelvic pain.) Review of Systems Constitutional: reports: Reviewed and negative Eyes: reports: Reviewed and negative Ears: reports: Reviewed and negative Nose: reports: Reviewed and negative Throat: reports: Reviewed and negative Cardiac: reports: Reviewed and negative Respiratory: reports: Reviewed and negative GI: reports: Abdominal Pain, Vomiting : reports: Reviewed and negative Skin: reports: Reviewed and negative Musculoskeletal: reports: Reviewed and negative Neurologic: reports: Reviewed and negative Psychiatric: reports: Reviewed and negative Endocrine: reports: Reviewed and negative Immunocompromised: reports: Reviewed and negative PD PAST MEDICAL HISTORY - Past Medical History Cardiovascular: None Respiratory: Asthma Neuro: None, Seizure disorder Endocrine/Autoimmune: None GI: Ulcers, Colon polyps, Other 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) : None HEENT: None Psych: Depression, Anxiety Musculoskeletal: None, Chronic back pain Derm: None - Past Surgical History Past Surgical History: No General: Colonoscopy, Other Ortho: Other - Present Medications Home Medications: Ambulatory Orders Medication Instructions Recorded Confirmed Acetaminophen 650 mg PO Q6H PRN #30 tablet 09/11/18 09/15/19 Ibuprofen 600 mg PO Q6H PRN #30 tablet 09/11/18 09/15/19 Amitriptyline [Elavil] 25 mg PO QPM 12/03/18 09/15/19 - Allergies Allergies/Adverse Reactions: Allergies Allergy/AdvReac Type Severity Reaction Status Date / Time No Known Drug Allergies Allergy Verified 12/20/19 21:25 - Social History Does the pt smoke?: No Smoking Status: Never smoker Does the pt drink ETOH?: No Does the pt have substance abuse?: No - Immunizations Immunizations are current?: Yes - POLST Patient has POLST: No PD ED PE NORMAL - Vitals Vital signs reviewed: Yes - General General: Alert and oriented X 3, No acute distress - HEENT HEENT: PERRL - Neck Neck: Supple, no meningeal sign - Cardiac Cardiac: RRR, No murmur - Respiratory Respiratory: Clear bilaterally - Abdomen Abdomen: Other (The abdomen is obviously distended there is diminished bowel sounds its tympanic & Hyperresonant.. There is no midline abdominal pulsatile mass) - Derm Derm: Warm and dry - Extremities Extremities: No deformity - Neuro Neuro: Alert and oriented X 3 - Psych Psych: Normal mood, Normal affect Results - Vitals Vitals: Vital Signs - 24 hr 12/20/19 21:23 Temperature 36.8 C Heart Rate 94 Respiratory 20 Rate Blood Pressure 124/93 H O2 Saturation 98 Oxygen O2 Source Room air - Labs Labs: Laboratory Tests 12/20/19 12/20/19 12/20/19 21:30 21:30 21:32 WBC 7.8 RBC 4.40 Hgb 12.7 Hct 39.5 MCV 89.8 MCH 28.9 MCHC 32.2 RDW 12.5 Plt Count 224 MPV 9.5 Neut # (Auto) 4.6 Lymph # (Auto) 2.2 [place] # (Auto) 0.6 Eos # (Auto) 0.4 Baso # (Auto) 0.0 Absolute Nucleated RBC 0.00 Nucleated RBC % 0.0 PT INR APTT Sodium Potassium Chloride Carbon Dioxide Anion Gap BUN Creatinine Estimated GFR (MDRD) Glucose Lactic Acid Calcium Total Bilirubin AST ALT Alkaline Phosphatase Total Protein Albumin Globulin Albumin/Globulin Ratio Lipase Carcinoembryonic Ag 48.2 CA 125 Antigen 87.4 H 12/20/19 12/20/19 12/20/19 21:32 21:32 21:53 WBC RBC Hgb Hct MCV MCH MCHC RDW Plt Count MPV Neut # (Auto) Lymph # (Auto) [place] # (Auto) Eos # (Auto) Baso # (Auto) Absolute Nucleated RBC Nucleated RBC % PT 13.5 H INR 1.2 APTT 33.5 H Sodium 138 Potassium 3.7 Chloride 100 L Carbon Dioxide 26 Anion Gap 12.0 BUN 9 Creatinine 0.7 Estimated GFR (MDRD) 94 Glucose 98 Lactic Acid 1.0 Calcium 8.9 Total Bilirubin 0.9 AST 20 ALT 11 Alkaline Phosphatase 50 Total Protein 6.7 Albumin 3.7 Globulin 3.0 Albumin/Globulin Ratio 1.2 Lipase 42 Carcinoembryonic Ag CA 125 Antigen PD MEDICAL DECISION MAKING - ED course Complexity details: other (History and physical exam are concerning for small bowel obstruction.) - Consults Consults: Consulted (name) (DR DARDEN OB), Discussed case with (DR DARDEN SMALL ANIMAL VETERINARIAN -->RECS TO DC TO OR [facility] FOR POLICE CHIEF DEPUTY/ONC), Other (23: [address] 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 ) Departure - Departure Disposition: Home, Self Care Clinical Impression: Ovarian mass, left Condition: Fair Instructions: CA 125, ED Cyst Ovarian Follow-Up: James Luna MD [Physician No Access] - Tomorrow Comments: call Dr. Luna tomorrow/saturday at [phone] at [facility] to schedule same day appointment. Discharge Date/Time: 12/21/19 00:05
[2019-12-20 21:41] LABS: BASOPHILS % (AUTO) 0.4 %; EOSINOPHILS # (AUTO) 0.4 10^3/uL (0.0-0.7); EOSINOPHILS % (AUTO) 4.9 %; HGB - HEMOGLOBIN 12.7 g/dL (12.0-16.0); LYMPHOCYTES # (AUTO) 2.2 10^3/uL (1.5-3.5); LYMPHOCYTES % (AUTO) 28.1 %; MEAN CORPUSCULAR HEMOGLOBIN 28.9 pg (27.0-31.0); MEAN CORPUSCULAR HGB CONC 32.2 g/dL (32.0-36.0); MEAN CORPUSCULAR VOLUME 89.8 fL (81.0-99.0); MEAN PLATELET VOLUME 9.5 fL (7.9-10.8); MONOCYTES # (AUTO) 0.6 10^3/uL (0.0-1.0); MONOCYTES % (AUTO) 7.5 %; NEUTROPHILS # (AUTO) 4.6 10^3/uL (1.5-6.6); NEUTROPHILS % (AUTO) 58.8 %; PLT - PLATELET COUNT 224 10^3/uL (130-450); RED CELL DISTRIBUTION WIDTH 12.5 % (12.0-15.0); WHITE BLOOD COUNT 7.8 x10^3/uL (4.8-10.8)
[2019-12-20] MEDS ORDERED: ONDANSETRON 4 MG/2 ML VIAL IVP STA (21:42)
[2019-12-20] MEDS ORDERED: MORPHINE 2 MG/ML CARPUJECT IVP STA (21:42)
[2019-12-20] MEDS ORDERED: SODIUM CHLORIDE 0.9% 1,000 ML IV ONE (21:42)
[2019-12-20 21:52] LABS: ALBUMIN 3.7 g/dL (3.2-5.5); ALBUMIN/GLOBULIN RATIO 1.2 (1.0-2.2); BILIRUBIN,TOTAL 0.9 mg/dL (0.2-1.0); CALCIUM 8.9 mg/dL (8.5-10.3); CREATININE 0.7 mg/dL (0.4-1.0); TOTAL PROTEIN 6.7 g/dL (6.7-8.2)
[2019-12-20 21:57] LABS: INR 1.2 (0.8-1.2); PT - PROTHROMBIN TIME 13.5 secs (9.9-12.6)
[2019-12-20 22:05] LABS: PARTIAL THROMBOPLASTIN TIME 33.5 secs (24.9-33.3)
[2019-12-20] MEDS ORDERED: IOVERSOL 320 100 ML VIAL IVP ONE ×2 (22:12→22:44)
--- NOTE | 2019-12-20 23:01 | CT Report ---
Reason: abd pain Procedure Date: 12/20/2019 Accession Number: [id number] / [id number] Procedure: CT - Abdomen/Pelvis W CPT Code: Final Report FULL RESULT: EXAM: CT ABDOMEN AND PELVIS EXAM DATE: 12/20/2019 10:26 PM. CLINICAL HISTORY: Abd pain. COMPARISONS: ABDOMEN/PELVIS W/ 03/25/2019 9:43 AM. TECHNIQUE: Routine helical CT imaging was performed through the abdomen and pelvis. IV contrast: 90 mL Optiray 320. Enteric contrast: No. Reconstructions: Coronal and sagittal. In accordance with CT protocol optimization, one or more of the following dose reduction techniques were utilized for this exam: automated exposure control, adjustment of mA and/or KV based on patient size, or use of iterative reconstructive technique. FINDINGS: Lung Bases: Unremarkable. Liver: New 1.2 cm hypodense lesion in the anterior left lobe, suspicious for a metastatic focus. Gallbladder/Bile Ducts: Unremarkable. Spleen: Normal. Pancreas: Normal. Adrenal Glands: Normal. Kidneys: Normal. No masses or hydronephrosis. Peritoneal Cavity/Bowel: Large volume of ascites, more in the pelvis than in the abdomen. Omental caking. No evidence of bowel obstruction. No evident adenopathy. The appendix is well visualized and normal. Pelvic Organs: Large volume of ascites in the pelvis. There is a cystic 8.1 x 7.4 x 6.4 cm lesion in the anterior left adnexa, suspicious for primary ovarian neoplasm. Vasculature: No aneurysms or other significant abnormality. Bones: No significant abnormality. Other: None. IMPRESSION: Large volume of ascites and omental caking. Suspicious cystic lesion in the anterior left adnexa, measuring 8.1 cm, suggestive of ovarian primary. No evidence of bowel obstruction. RADIA The call report notification system was initiated by Dr. Mazin Juarez at 10:59 PM on 12/20/2019. The above call report findings were discussed with Stanford Wisdom by Dr. Mazin Juarez at 11:01 PM on 12/20/2019.
[2019-12-20] MEDS ORDERED: ONDANSETRON ODT 4 MG Prepack 2 TL PRN (23:53)
[2019-12-20] MEDS ORDERED: HYDROcod/ACET 5/325 Prepack 4 PO STA (23:53)
== END 2019-12-21 00:05 | disposition home or self-care (01) ==
LOC: ED 21:14
DX: N83.8 Other noninflammatory disorders of ovary, fallopian tube and broad ligament (principal); R18.8 Other ascites
CPT/HCPCS: 36415; 74177; 80053; 82378; 83605; 83690; 85025; 85610; 85730; 86304; 96361; 96374; 99283; 99284; Q9967

== ENCOUNTER 2020-02-10 08:52 | Outpatient (CLI) | payer MEDICAID | END 2020-02-10 08:53 | disposition home or self-care (01) | LOC: PC 08:52 | PROVIDERS: ATTEND Nurse Practitioner Adult Health | DX: Z53.9 Procedure and treatment not carried out, unspecified reason (principal) ==

== ENCOUNTER 2020-02-10 15:05 | Outpatient (CLI) | payer MEDICAID | END 2020-02-10 15:06 | disposition home or self-care (01) | LOC: COV 15:05 | PROVIDERS: ATTEND Internal Medicine Hematology & Oncology | DX: R50.9 Fever, unspecified (principal) | CPT/HCPCS: 81599 ==

== ENCOUNTER 2020-02-11 16:38 | Emergency (ER) | payer MEDICAID ==
[2020-02-11] MEDS ORDERED: SODIUM CHLORIDE 0.9% IV STA (17:09)
[2020-02-11 17:29] LABS: BASOPHILS % (AUTO) 0.7 %; EOSINOPHILS % (AUTO) 0.1 %; HGB - HEMOGLOBIN 10.2 g/dL (12.0-16.0); LYMPHOCYTES % (AUTO) 6.9 %; MEAN CORPUSCULAR HEMOGLOBIN 28.2 pg (27.0-31.0); MEAN CORPUSCULAR HGB CONC 32.3 g/dL (32.0-36.0); MEAN CORPUSCULAR VOLUME 87.3 fL (81.0-99.0); MEAN PLATELET VOLUME 9.7 fL (7.9-10.8); MONOCYTES % (AUTO) 8.7 %; NEUTROPHILS % (AUTO) 80.3 %; PLT - PLATELET COUNT 408 10^3/uL (130-450); RED BLOOD COUNT 3.62 10^6/uL (4.20-5.40); RED CELL DISTRIBUTION WIDTH 14.2 % (12.0-15.0); WHITE BLOOD COUNT 10.6 x10^3/uL (4.8-10.8)
[2020-02-11] MEDS ORDERED: SODIUM CHLORIDE 0.9% 1,000 ML IV ONE (17:29)
[2020-02-11 17:32] LABS: ABNORMAL LYMPHS % (MANUAL) 0 %
[2020-02-11 17:38] LABS: ALBUMIN 2.8 g/dL (3.2-5.5); ALBUMIN/GLOBULIN RATIO 0.6 (1.0-2.2); BILIRUBIN,TOTAL 2.1 mg/dL (0.2-1.0); CALCIUM 8.1 mg/dL (8.5-10.3); CREATININE 0.7 mg/dL (0.4-1.0); TOTAL PROTEIN 7.3 g/dL (6.7-8.2)
[2020-02-11 17:47] LABS: BAND NEUTROPHILS % (MANUAL) 23 %; DIFFERENTIAL COMMENT MANUAL DIFFERENTIAL; LYMPHOCYTES # (MANUAL) 0.8 10^3/uL (1.5-3.5); LYMPHOCYTES % (MANUAL) 8 %; MONOCYTES # (MANUAL) 1.1 10^3/uL (0.0-1.0); PLATELET ESTIMATE, MANUAL NORMAL (130-450,000) (NORMAL); PLATELET MORPHOLOGY NORMAL APPEARANCE (NORMAL); RBC MORPHOLOGY (MULTIPLE) 1+ STOMATOCYTES (NORMAL)
[2020-02-11] MEDS ORDERED: POTASSIUM CHLOR 10 MEQ/100 ML 10 MEQ/100 ML BAG IV STA ×2 (18:13→19:52)
--- NOTE | 2020-02-11 18:29 | XRAY Report ---
Reason: dyspnea, sepsis, colon CA Procedure Date: 02/11/2020 Accession Number: [id number] / [id number] Procedure: XR - Chest 1 View X-Ray CPT Code: 22030 Final Report FULL RESULT: EXAM: CHEST RADIOGRAPHY EXAM DATE: 02/11/2020 05:59 PM. CLINICAL HISTORY: Dyspnea, sepsis, colon CA. COMPARISON: CHEST 2 VIEW 10/25/2018 10:11 PM. TECHNIQUE: 1 view. FINDINGS: Lungs/Pleura: Low lung volumes. No focal opacities evident. No pleural effusion. No pneumothorax. Mediastinum: Within exam limitations, the cardiomediastinal contour is normal. Well-positioned left side Port-A-Cath. Other: None. IMPRESSION: Low lung volumes. No acute cardiopulmonary process. RADIA
[2020-02-11] MEDS ORDERED: MAGIC MOUTHWASH 120 ML BOTTLE PO STA (18:30)
[2020-02-11 19:29] LABS: GLUCOSE, URINE (UA) NEGATIVE (NEGATIVE); LEUKOCYTE ESTERASE, URINE NEGATIVE (NEGATIVE); PH,URINE 6.5 PH (5.0-7.5); UROBILINOGEN,URINE 1 (NORMAL) E.U./dL (NORMAL)
[2020-02-11 19:40] LABS: CLARITY,URINE CLEAR (CLEAR)
[2020-02-11 19:42] LABS: BACTERIA,URINE Rare /HPF (None Seen); BILIRUBIN,URINE MODERATE (NEGATIVE); ICTOTEST,URINE POSITIVE; RBC,URINE None Seen /HPF (0-5); SQUAMOUS EPITHELIAL CELL,UR MOD Squamous (<= Few)
[2020-02-11 19:42] LABS: RAPID STREP SCREEN Negative (Negative)
[2020-02-11 19:43] LABS: MUCUS,URINE Moderate Strands
--- NOTE | 2020-02-11 20:58 | ED Physician Documentation ---
History of Present Illness - Stated complaint Stated Complaint: SORE THROAT/VOMIT - Chief complaint Chief Complaint: General - History obtained from History obtained from: Patient (This is a 39 yo F w/ a history of stage iv metastatic colon ca with severe ascites who presents with sore throat and mouth. She was seen for same yesterday by her oncologist, had a negative covid test, no new meds started. Mouth and throat continue to be extremely sore, so sore she is having difficulty taking po. She has some gagging due to the sore throat but no vomiting. denies cough or congestion. no neck pain or stiffness, no chest pain or dyspnea. has chronic abd pain and ascites which is no worse than baseline. no dysuria. had labs done yesterday in clinic and plan was for her to return later in the week for IV hydration and mag/k+ supplementation.) Review of Systems Constitutional: reports: Fever, Fatigue. denies: Chills, Myalgias Eyes: reports: Reviewed and negative Ears: reports: Reviewed and negative Nose: reports: Reviewed and negative Throat: reports: Oral lesions / sores, Sore throat, Swollen tonsils. denies: Dental pain / toothache, Swallowed foreign body Cardiac: reports: Reviewed and negative Respiratory: reports: Reviewed and negative GI: reports: Abdominal Pain, Abdominal Swelling, Nausea, Vomiting. 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 HEENT: None Psych: Depression, Anxiety Musculoskeletal: None, Chronic back pain Derm: None Other Past Medical History: color cancer Dx 2018 - Past Surgical History Past Surgical History: No General: Colonoscopy, Other Ortho: Other - Present Medications Home Medications: Ambulatory Orders Medication Instructions Recorded Confirmed Acetaminophen 650 mg PO Q6H PRN #30 tablet 09/11/18 02/10/20 Ibuprofen 600 mg PO Q6H PRN #30 tablet 09/11/18 02/10/20 Amitriptyline [Elavil] 25 mg PO QPM 12/03/18 02/10/20 Diphenoxylate/Atropine [Lomotil] 2.5 mg ORAL DAILY PRN MDD 8 02/10/20 02/10/20 Loperamide [Imodium] 2 tab ORAL DAILY PRN 02/10/20 02/10/20 Amoxicillin 500 mg PO Q8HR 10 Days #300 ml 02/11/20 - Allergies Allergies/Adverse Reactions: Allergies Allergy/AdvReac Type Severity Reaction Status Date / Time No Known Drug Allergies Allergy Verified 02/11/20 16:45 - Social History Does the pt smoke?: No Smoking Status: Never smoker Does the pt drink ETOH?: No Does the pt have substance abuse?: No - Immunizations Immunizations are current?: Yes - POLST Patient has POLST: No PD ED PE NORMAL - Vitals Vital signs reviewed: Yes - General General: Alert and oriented X 3, Other (pt appears chronically ill. Appears sick but non-toxic. Conversational, no acute distress. ) - HEENT HEENT: Atraumatic, Ears normal, Other (dry mm. tongue somewhat swollen, reddened, and dry but no obvious sores. tonsils 2+ symmetric and no exudate, uvula midline, mild trismus. ) - Neck Neck: Supple, no meningeal sign, No adenopathy, No JVD - Cardiac Cardiac: No murmur, No gallop, No rub, Other (tachycardia 110) - Respiratory Respiratory: No respiratory distress, Clear bilaterally - Abdomen Abdomen: Other (severe ascites, chronic. active bowel tones. no focal tenderness. ) - Back Back: No CVA TTP, No spinal TTP - Derm Derm: Normal color, Warm and dry, No rash - Extremities Extremities: No deformity, No tenderness to palpate, No edema, No calf tenderness / cord - Neuro Neuro: Alert and oriented X 3 Eye Opening: Spontaneous Motor: Obeys Commands Verbal: Oriented GCS Score: 15 Results - Vitals Vitals: Vital Signs - 24 hr 02/11/20 02/11/20 02/11/20 16:46 17:22 18:21 Temperature 38 C H Heart Rate 115 H 111 H 108 H Respiratory 22 16 25 H Rate Blood Pressure 124/75 130/62 131/81 H O2 Saturation 98 99 97 02/11/20 02/11/20 19:28 21:23 Temperature Heart Rate 107 H 111 H Respiratory 22 18 Rate Blood Pressure 123/85 H 125/85 H O2 Saturation 96 97 Oxygen O2 Source Room air - Labs Labs: Laboratory Tests 02/11/20 02/11/20 02/11/20 17:18 17:18 17:18 WBC 10.6 RBC 3.62 L Hgb 10.2 L Hct 31.6 L MCV 87.3 MCH 28.2 MCHC 32.3 RDW 14.2 Plt Count 408 MPV 9.7 Neut # (Auto) Not Reportable Lymph # (Auto) Not Reportable [place] # (Auto) Not Reportable Eos # (Auto) Not Reportable Baso # (Auto) Not Reportable Absolute Nucleated RBC Not Reportable Total Counted 100 Band Neuts % (Manual) 23 H Abnorm Lymph % (Manual) 0 Nucleated RBC % Not Reportable Neutrophils # (Manual) 8.7 H Lymphocytes # (Manual) 0.8 L Monocytes # (Manual) 1.1 H Eosinophils # (Manual) 0.0 Basophils # (Manual) 0.0 Differential Comment MANUAL DIFFERENTIAL Manual Slide Review Indicated WBC Morphology NORMAL APPEARANCE Platelet Estimate NORMAL (130-450,000) Platelet Morphology NORMAL APPEARANCE RBC Morph Micro Appear 1+ STOMATOCYTES Sodium 135 Potassium 3.0 L Chloride 91 L Carbon Dioxide 30 Anion Gap 14.0 H BUN 12 Creatinine 0.7 Estimated GFR (MDRD) 94 Glucose 111 H Lactic Acid 1.5 Calcium 8.1 L Total Bilirubin 2.1 H AST 88 H ALT 24 Alkaline Phosphatase 109 Total Protein 7.3 Albumin 2.8 L Globulin 4.5 H Albumin/Globulin Ratio 0.6 L Urine Color Urine Clarity Urine pH Ur Specific [place] Urine Protein Urine Glucose (UA) Urine Ketones Urine Occult Blood Urine Nitrite Urine Bilirubin Urine Urobilinogen Ur Leukocyte Esterase Urine RBC Urine WBC Ur Squamous Epith Cells Urine Bacteria Urine Mucus Urine Culture Comments Group A Strep Rapid 02/11/20 02/11/20 19:05 19:20 WBC RBC Hgb Hct MCV MCH MCHC RDW Plt Count MPV Neut # (Auto) Lymph # (Auto) [place] # (Auto) Eos # (Auto) Baso # (Auto) Absolute Nucleated RBC Total Counted Band Neuts % (Manual) Abnorm Lymph % (Manual) Nucleated RBC % Neutrophils # (Manual) Lymphocytes # (Manual) Monocytes # (Manual) Eosinophils # (Manual) Basophils # (Manual) Differential Comment Manual Slide Review WBC Morphology Platelet Estimate Platelet Morphology RBC Morph Micro Appear Sodium Potassium Chloride Carbon Dioxide Anion Gap BUN Creatinine Estimated GFR (MDRD) Glucose Lactic Acid Calcium Total Bilirubin AST ALT Alkaline Phosphatase Total Protein Albumin Globulin Albumin/Globulin Ratio Urine Color ORANGE Urine Clarity CLEAR Urine pH 6.5 Ur Specific [place] 1.025 Urine Protein Urine Glucose (UA) NEGATIVE Urine Ketones Urine Occult Blood Urine Nitrite Urine Bilirubin MODERATE H Urine Urobilinogen 1 (NORMAL) Ur Leukocyte Esterase NEGATIVE Urine RBC None Seen Urine WBC 0-3 Ur Squamous Epith Cells MOD Squamous H Urine Bacteria Rare Urine Mucus Moderate Strands Urine Culture Comments NOT INDICATED Group A Strep Rapid Negative PD MEDICAL DECISION MAKING - ED course Complexity details: reviewed old records, reviewed results, re-evaluated patient, considered differential, d/w patient, other (d/w ED attending) ED course: 39 yo F with an unfortunate hx/o metastatic colon ca currently on FOLFIRI and Avastin who presents generally feeling unwell with fever and sore mouth and sore throat. she has mild trismus but midline uvula, full neck ROM, and symmetric tonsils making a peritonsilar abscess unlikely. She had a negative covid test collected yesterday and has no cough or dyspnea. her rst today was negative, labs similar to yesterday though today has a bandemia w/o leukocytosis (wbc did increase from 4 to 10). she had no new abdominal sx or dysuria to suggest any other source of infection. though rst is negative, with the appearance of her throat and the bandemia, i am going to treat her for a strep infection with amoxicillin. consider geri as well, but will hold off until follow up with oncology. we have obtained blood cultures and i advised pt that we will call her if they are positive and it possible she would need to return for IV abx. she was advised to return at anytime if she felt worse or had new sx such as dyspn ea, chest pain, neck stiffness, increased abd pain, or dysuria. she has persistent hypokalemia which was repleted here and pt will also fup with oncology tomorrow for possible additional infusion per prior plan. she did feel somewhat better after ivf. i tried magic mouthwash for mouth pain--appears somewhat like stomatitis though pt is not getting radiation. i reviewed her cancer drugs and the stomatitis does not seem to be a side effect of these drugs. advised to keep well moisturized. pt did not care for the magic mouthwash therefore i did not prescribe this for home use. pt has chronic diarrhea since starting recent chemo. per oncology note yesterday thought 2/2 to chemo. no increase or change in diarrhea per pt. pt will follow up tomorrow w/ oncologist. case discussed w/ Dr. Euceda. Departure - Departure Disposition: 01 Home, Self Care Clinical Impression: Hypokalemia, Sore mouth, Bandemia without diagnosis of specific infection Pharyngitis Qualifiers: Pharyngitis/tonsillitis etiology: unspecified etiology Qualified Code(s): J02.9 - Acute pharyngitis, unspecified Condition: Fair Instructions: Hypokalemia Dc Prescriptions: Amoxicillin 500 mg PO Q8HR 10 Days #300 ml Comments: Please stay well hydrated, this will help your mouth pain. Try to take soft foods such as jello and applesauce. Take tylenol as needed for fever or aches. You had blood cultures drawn when you were in the ER. If they are positive, we will call you and you may need to come in for IV antibiotics. At this time I think the source of your fever is your throat pain and though you have a negative strep test, I am going to treat you for a bacterial sore throat. Please return at anytime if your symptoms are worsening. Please follow up with your oncologist tomorrow regarding persistent fever and mouth pain. Discharge Date/Time: 02/11/20 22:26
[2020-02-11] MEDS ORDERED: oxyCODONE 10 MG/0.5 ML SYRINGE PO STA (21:08)
[2020-02-11 21:24] VITALS: BP 125/85
== END 2020-02-11 22:26 | disposition home or self-care (01) ==
LOC: ED 16:38
DX: K13.79 Other lesions of oral mucosa (principal); J02.9 Acute pharyngitis, unspecified; D72.825 Bandemia; E87.6 Hypokalemia; C18.9 Malignant neoplasm of colon, unspecified; Z79.899 Other long term (current) drug therapy
CPT/HCPCS: 36415; 71045; 80053; 81001; 83605; 85025; 87040; 87070; 87430; 96361; 96365; 99284; 99285; A9270; 87086

== ENCOUNTER 2020-02-16 12:30 | Outpatient (CLI) | payer MEDICAID ==
--- NOTE | 2020-02-16 15:35 | CONSULTATION NOTE ---
Palliative Care Consultation - Referral Referring Provider: Dr. Kirit Dubon Time of Visit: [id number] Referral setting: Home Referral Reason: Pain of neoplastic origin/Ascites/met colon CA - Information Sources Records reviewed: Previous records reviewed History/Review of Systems obtained from: Patient Exam limitations: Clinical condition (patient feeling poorly; some STM issues) - History of Present Illness Brief History of Present Illness: This is a 39-year-old woman with metastatic colon cancer with liver mets, and massive ascites. She was originally diagnosed with colon cancer 09/2018, at that time she was diagnosed with laparoscopic left colectomy with final path showing T3N1 after initial presentation of abdominal pain, and right blood per rectum. She underwent adjuvant chemotherapy with CAP OX, for a total of 8 cycles, completing 03/2019. At that point time she had a CT scan without further signs of mets, she also had a repeat colonoscopy 09/2019 without local recurrence. She reports she "woke up 1 day with her abdominal swelling", and had a CT scan 12/20/2019 which confirmed massive ascites, omental caking, and a left adnexal cystic lesion 8 x 7 x 6 cm inside. She did have a biopsy, with final path confirming adenocarcinoma consistent with metastatic disease, which was done on 01/11/2020. She has had 2 paracentesis, and received her first treatment with significant side effects, of FOLFIRI/Avastin 01/27/2020. She was to have her second therapy on 02/10/2020, and presented with an elevated temp 100, and was sent for CO VID 19 swab, she had had persistent diarrhea for 2 weeks, increasing mouth pain, and unable to eat or drink. She did test negative for COVID19. She was scheduled for 02/11 for replacement fluids, but had an ED visit on where she received hydration and magnesium/potassium supplementation. She also received a prescription for amoxicillin with a diagnosis of acute pharyngitis, and has had some improvement in her sore throat, but has developed severe oral candidiasis. On exam she has chunky white cottage cheese, she reports this is continue to worsen, and is causing her to gag. She has difficulty with talking, she does have mucositis as well, she has been able to drink Gatorade, but has very little food or nutrition. She is able to ambulate, she has not been taking her diuretics, she is quite confused about her medications, she reports she has lost her Vicodin has not had any pain meds for a week and a half. She has been using a heating pad but has been fairly miserable. Her ascites is worsening, she has significant pressure, she has not been scheduled for paracentesis. We were unable to locate the Lomotil, she does not have loperamide in the home, she had been using Pepto-Bismol for management of her diarrhea with very little effect. She reports she has no transportation, she is feeling overwhelmed and tearful. She does not present with any social support.I am seeing her in her home setting, she is having trouble with household tasks, she is expecting her 12-year-old daughter to come visit for Saturday and , she is hoping to be able to have her do some meal prep and work on improving her intake. When she had her previous chemo in 2018, her mother from [place] was able to provide support and helped her through it. Unfortunately with they restrictions, she cannot travel, and is feeling very much alone and is coping poorly. 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 Very little work, she does need assistance, but has not followed through on any application process, [place] application, or reached out regarding community resources. She feels fairly immobilized regarding this. She reports she has a 19-year-old son, but he is not available to help her, with transportation or meals or errands. She has actually been driving herself short distances, including to the ED last time. She has a 12-year-old daughter, who does come and visit every other week, and is due for tomorrow, does not want anything scheduled during this time though she is doing quite poorly. She is not able to identify any friends who can provide transportation or support, and is quite isolated. Family History - Family History Family History: Mother: Alive and Well, Father: , Sister: Alive and Well, Brother: Alive and Well Medications/Allergies - Medications Home Medications: Ambulatory Orders Medication Instructions Recorded Confirmed Diphenoxylate/Atropine [Lomotil] 2.5 mg ORAL DAILY PRN MDD 8 02/10/20 02/17/20 Loperamide [Imodium] 2 tab ORAL DAILY PRN 02/10/20 02/17/20 Fluconazole [Diflucan] 100 mg PO DAILY MDD 7 days 02/17/20 02/17/20 Furosemide 20 mg PO DAILY 02/17/20 02/17/20 HYDROcod/ACETAM 5/325 [[place] 5/325] 1 tab PO Q4HR MDD 6 02/17/20 02/17/20 Nystatin 5 ml PO QID MDD 10 days 02/17/20 02/17/20 OLANZapine [Zyprexa] 5 mg PO QPM PRN MDD 5 days for 02/17/20 02/17/20 chemo Ondansetron [Ondansetron Odt] 8 mg PO Q8HR PRN 02/17/20 02/17/20 Spironolactone 50 mg PO DAILY 02/17/20 02/17/20 - Allergies Allergies/Adverse Reactions: Allergies Allergy/AdvReac Type Severity Reaction Status Date / Time No Known Drug Allergies Allergy Verified 02/11/20 16:45 Review of Systems - Constitutional Constitutional: reports: Fatigue (worsening), Malaise, Weakness, Poor appetite, Weight gain (ascites). denies: Fever, Chills - Ears, Nose & Throat Ears, Nose & Throat: reports: Mouth lesions (redness/diff talking), Other ("white chunks" gagging;) - Cardiovascular Cardiovascular: reports: Edema (LE), Exertional dyspnea, Decr. exercise tolerance - Respiratory Respiratory: reports: SOB at rest, SOB with exertion. denies: Cough, Wheezing - Gastrointestinal Gastrointestinal: reports: Abdominal pain, Abdominal distention (worsening), Diarrhea (loose but slowed down; using pepto bismal, unable to locate lomotil in home), Nausea, Bloating, Poor appetite, Other (little food intake; about 1 1/2 liter gatorade) - Genitourinary Genitourinary: denies: Incontinence - Musculoskeletal Musculoskeletal: reports: Back pain, Muscle aches, Stiffness, Limited range of motion, Muscle weakness. denies: Assistive devices (needs walker) - Integumentary Integumentary: reports: Dryness, Hair changes (thinning) - Neurological Neurological: reports: General weakness, Abnormal gait (difficulty walking with ascites/LE) - Psychiatric Psychiatric: reports: Depression, Anxiety - Hematologic/Lymphatic Hematologic/Lymphatic: reports: Anemia (10.2), Recurrent infections (treated for acute pharyngitis (poss mucousitis from chemo) white count up) - All Other Systems All Other Systems: reports: Other (limited ROS patient vague) Physical Exam - Vital Signs Temperature: 97.0 C Pulse Rate: 108 Respiratory Rate: 18 Blood Pressure: 92/62 (sitting) - Physical Exam General Appearance: positive: Alert, Moderate distress, Anxious Eyes Bilateral: positive: Other (periorbital edema) ENT: positive: Other (significant "clumps" white candidiasis; bucally coated; voice hoarse suspect esophageal) Neck: positive: Trachea midline Cardiovascular: positive: Tachycardia Respiratory: positive: Diminished in bases. negative: No respiratory distress (increased respiratory effort with any activity) Abdomen: positive: Abnml bowel sounds, Tenderness, Distended, Taut Skin: positive: Pallor, Dryness Extremities: positive: Pedal edema (pitting edema up to mid thigh) Neurologic/Psychiatric: positive: Oriented x3, Slurred/abnml speech (mechancial), Depressed mood/affect, Flat affect Palliative Care - POLST Patient has POLST: No POLST Status: Full Code Pain: Pain worsening, Location (using heating pad; can't find hydrocodone for 1 1/2 weeks; increasing abdominal discomfort with distension/lower back pain) Tiredness/Fatigue: Severe (7-10) Drowsiness/Sedation: Moderate (4-6) Nausea: Moderate (4-6) Anorexia: Severe (7-10) Dyspnea: Moderate (4-6) Depression: Severe (7-10) Anxiety: Severe (7-10) Feelings of wellbeing/Perceived Quality of Life: Poor, Worsening Sleep: Variable sleep pattern Constipation: No Performance Status: Patient in small apartment, only able to ambulate few steps, without breathlessness and feeling weak. She is spending most of her time laying on the couch and/or her bed. She is unable to participate in household tasks and difficulty with meal prep. She is expecting to get a shower bench, as she is afraid she is going to fall in her bathroom. She is able to dress herself. I would put her actually at a PPS of 50%. - Palliative Care Discussion: Patient is feeling overwhelmed and stressed, has not been able to follow through on anything. She is not been taking her medications, we did locate them through the apartment, and review use. New prescriptions were written out. She feels like she is unable to identify any community or family support, her mother who would be most often willing to be her caregiver, is stuck in [place]. She has not followed through on any paperwork, or community resources and feels immobilized to be able make any of these calls. She does know she supposed to have appointment for paracentesis, but has not called back or follow through on this. She did not identify any transportation, as we discussed arranging for some fluid support, she does not want to go to the ED, she is expecting her daughter for the next couple days. She puts forth many barriers, and is quite immobilized both by her situation and depression. Results - Lab Results Lab results reviewed: Yes Impression and Recommendations - Palliative Care Impression: This is a 39-year-old with metastatic colon cancer with severe ascites, liver mets, and declining functional status. She does present with high symptom burden of pain, fatigue, anxiety, depression, and existential distress. She is easily overwhelmed and has very little community or family support. Today she presents with acute oral candidiasis, uncontrolled pain, and worsening ascites. Palliative care to establish rapport, addressing pain and symptom management, will enlist help of medical palliative care social economist, patient with limited resources. Recommendations/Counseling Done: 1. Oral candidiasis. This is quite severe, will go ahead and initiate Diflucan 100 mg x 7 days, and and follow-up nystatin 5 mils 4 times daily swish and spit. It is interfering with her ability to eat, as well as causing increased nausea. Most likely was compounded by antibiotic use, and depressed immune status. Does appear to be superimposed on mucositis, will reevaluate after candidiasis addressed. 2. Severe ascites. Patient has not followed through with paracentesis appointment, she is quite overwhelmed, agreed for some assistance in facilitating appointment. Counseling provided regarding if worsening pain or severe distress, she is to go to the ED to be tapped. Patient is hesitant in the context she is expecting her daughter tomorrow, and does not want interfere with her visit. The patient appears in distress, reordered hydrocodone. Patient has furosemide and Spironolactone in the home, has not been taking it. Reviewed use and indications, at this point unclear if would offer any benefit, but will trial. More acute need is paracentesis. 3. Pain of neoplastic origin. Patient had been taking one half tab every 3 hours with good control, may be up to a total of 2 to 3 tablets. She is not had anything for a week and a half, most likely would benefit from a fentanyl patch, but given her current living situation and Opioid navety, will follow-up on how much she uses and evaluate at next visit. 4. Diarrhea secondary to chemotherapy. Patient had been using actually Pepto- Bismol, cannot find Lomotil prescription in home. Suspect this is why she got behind, did reorder at right aid, written directions provided on use. Reviewed and verbalized understanding. Patient is using Gatorade, reports just loose stools at this point in time, no further watery stool. High risk for recurrent hypokalemia. 5. Failure to thrive. This is multifactorial, patient with little social support, decreased intake of food and fluids, worsening symptom burden, as well as worsening ascites. Counseling provided regarding recommendation follow-up with ED for tap, given severity of symptoms, she would like to trial another 24- 48 hrs., with her daughter home and doing some meal prep. She is hoping with treating oral candidiasis this will facilitate increase intake as well. 6. Depression. Patient presents with persistent feelings of helplessness and hopelessness, quite overwhelmed with her current situation. She does admit to having been given multiple resources, but has not followed through on any of them. Patient most likely is going to need some assistance, will have medical palliative care social economist reach out. As well as follow-up at clinic if they can help her with application for [place]. 7. Advanced care planning. Patient's goals are to continue with treatment, did not explore patient's current understanding of illness, she is quite overwhelmed today. Presents with little social support, suspect this will be an ongoing challenging conversation as well as to develop goals and advanced care planning documents. Time Spent: 75 minutes with greater than 50% of this done in counseling regarding medication, medication adherence, pain and symptom management, and coordination of care.
== END 2020-02-16 12:31 | disposition home or self-care (01) ==
LOC: PC 12:30
PROVIDERS: ATTEND Nurse Practitioner Adult Health
DX: Z51.5 Encounter for palliative care (principal); G89.3 Neoplasm related pain (acute) (chronic); B37.0 Candidal stomatitis; K12.30 Oral mucositis (ulcerative), unspecified; K52.1 Toxic gastroenteritis and colitis; T45.1X5A Adverse effect of antineoplastic and immunosuppressive drugs, initial encounter; R62.7 Adult failure to thrive; C18.9 Malignant neoplasm of colon, unspecified; F32.9 Major depressive disorder, single episode, unspecified; R53.83 Other fatigue; R53.1 Weakness; C78.7 Secondary malignant neoplasm of liver and intrahepatic bile duct; R18.8 Other ascites; Z79.899 Other long term (current) drug therapy; Z79.891 Long term (current) use of opiate analgesic; Z60.8 Other problems related to social environment
CPT/HCPCS: 99345

== ENCOUNTER 2020-02-23 11:35 | Outpatient (CLI) | payer MEDICAID ==
--- NOTE | 2020-02-23 13:04 | CONSULTATION NOTE ---
Palliative Care Follow Up - Referral Referring Provider: Dr. Sunny Fraire Time of Visit: 11:35-12:30 Referral setting: [facility] Referral Reason: Goals of Care/Met Colon Ca/Pain of neoplastic origin - Information Sources Records reviewed: RN notes reviewed, Previous records reviewed History/Review of Systems obtained from: Patient Exam limitations: No limitations - History of Present Illness Update Brief HPI Update: This is a 39-year-old woman with metastatic colon cancer with liver mass and massive ascites. She showed up today to get her chemotherapy, and has worsening ascites, increased weakness, worsening nausea and vomiting, her presentation involves also increased WBC today 22.9, low potassium 2.9, appears more cachectic and is doing poorly overall. Have been trying to get her in to get a paracentesis, unfortunately has not been able to schedule here it would be health, and has transportation issues. We were working on getting her in at [place]. Patient presents is quite tearful, overwhelmed, feeling quite poorly, worsening abdominal distention, her ascites is even worse than last week, difficulty walking. She presents with high symptom burden, of pain, fatigue, anxiety, depression and existential distress. In the context of her goals of care, patient is feeling like "throwing in the towel", she does recognize the seriousness of her illness, but in the context of choosing comfort over treatment, recommended we continue this conversation after she has had a paracentesis, that she gets treated for what ever is elevating her WBCs, and worsening her functional status. She does live alone, she has difficulty taking care of her cats currently, she has difficulty with meal prep, and cannot grocery shop for leave the home at this point in time.Patient is getting ready to go over to the ED, we did discuss is important to have her goals written down, did complete a POLST. Social History - Living Situation Living arrangement: At home Living Situation: Alone Support System: Patient has a 12-year-old daughter, who lives with her ex-. She has a 19-year-old son who is minimally involved, she was hoping her mother could come down and help her with caregiving. She lives in an apartment that is 2 stories up, she does not perceive how she is going to get home. We did discuss a lift assist if they do not admit her. Through 911. Medications/Allergies - Medications Home Medications: Ambulatory Orders Medication Instructions Recorded Confirmed Diphenoxylate/Atropine [Lomotil] 2.5 mg ORAL DAILY PRN MDD 8 02/10/20 02/23/20 Loperamide [Imodium] 2 tab ORAL DAILY PRN 02/10/20 02/23/20 Fluconazole [Diflucan] 100 mg PO DAILY MDD 7 days 02/17/20 02/23/20 Furosemide 20 mg PO DAILY 02/17/20 02/23/20 HYDROcod/ACETAM 5/325 [Jbphh 5/325] 1 tab PO Q4HR MDD 6 02/17/20 02/23/20 Nystatin 5 ml PO QID MDD 10 days 02/17/20 02/23/20 OLANZapine [Zyprexa] 5 mg PO QPM PRN MDD 5 days for 02/17/20 02/23/20 chemo Ondansetron [Ondansetron Odt] 8 mg PO Q8HR PRN 02/17/20 02/23/20 Spironolactone 50 mg PO DAILY 02/17/20 02/23/20 - Allergies Allergies/Adverse Reactions: Allergies Allergy/AdvReac Type Severity Reaction Status Date / Time No Known Drug Allergies Allergy Verified 02/23/20 12:39 Review of Systems - Constitutional Constitutional: reports: Fatigue, Weakness, Other (less intake/more temporal wasting weight up with ascites). denies: Fever, Chills - Eyes Eyes: reports: Vision loss - Ears, Nose & Throat Ears, Nose & Throat: reports: Dry mouth, Other (candidiasis improved) - Cardiovascular Cardiovascular: reports: Edema, Lightheadedness, Exertional dyspnea, Decr. exercise tolerance, Orthopnea - Respiratory Respiratory: reports: Orthopnea, SOB at rest, SOB with exertion - Gastrointestinal Gastrointestinal: reports: Abdominal distention (worsening), Diarrhea (improved), Nausea, Vomiting, Bloating, Poor appetite - Genitourinary Genitourinary: reports: Frequency - Musculoskeletal Musculoskeletal: reports: Muscle aches, Stiffness, Limited range of motion, Muscle weakness, Other (difficulty walking) - Integumentary Integumentary: reports: Dryness - Neurological Neurological: reports: General weakness, Dizziness - Psychiatric Psychiatric: reports: Depression, Anxiety - Endocrine Endocrine: reports: Intolerance to cold - Hematologic/Lymphatic Hematologic/Lymphatic: reports: Recurrent infections - All Other Systems All Other Systems: reports: Reviewed and negative Physical Exam - Vital Signs Temperature: 37.1 C Pulse Rate: 106 Respiratory Rate: 20 Blood Pressure: 124/88 - Physical Exam General Appearance: positive: Alert, Moderate distress, Anxious Eyes Bilateral: positive: Normal inspection ENT: positive: Other (oral candidiasis resolved; lips dry;) Neck: positive: Trachea midline Cardiovascular: positive: Tachycardia Respiratory: positive: Diminished in bases. negative: No respiratory distress (with respiratory effort with conversation) Abdomen: positive: Tenderness, Distended, Taut Skin: positive: Pallor, Dryness Extremities: positive: Pedal edema Neurologic/Psychiatric: positive: Oriented x3, Weakness, Depressed mood/affect, Flat affect Palliative Care - POLST Patient has POLST: Yes POLST Status: DNR, Selective Treatment Pain: Pain worsening, Location (Patient's pain is centralized into her abdomen, her ascites is worsening, she does have right upper quadrant pain as well. She has been unable to keep down her pain medications, she is only been taking 1/2-1 hydrocodone 5 mg/325 acetaminophen when she does. She has been using heat. Her pain is worsening I suspect it would improve with paracentesis.) Tiredness/Fatigue: Severe (7-10) Drowsiness/Sedation: Mild (1-3) Nausea: Moderate (4-6), With vomiting Anorexia: Severe (7-10), Weight loss (Patient appears much more cachectic even from last visit, has not been able to get food or fluids and, secondary to severe ascites and nausea.) Dyspnea: Severe (7-10), Comment (Patient with respiratory effort, unclear if mostly ascites, or may also have pleural effusions. She is unable to take a deep breath.) Depression: Moderate (4-6) Anxiety: Severe (7-10) (cannot identify anyone to care for her; worried about how to get home) Feelings of wellbeing/Perceived Quality of Life: Poor, Worsening Sleep: Variable sleep pattern Performance Status: Patient reports functional decline, less able to care for herself, difficulty ambulating around house. Is afraid she can no longer care for her cats, her bed is on the floor, is difficult as far as getting up and off her mattress. She does spend quite a bit of time on the couch. She has not been able to do much with her personal care, though she did get a walker and shower chair from a friend. - Palliative Care Discussion: Patient unable to receive treatment today, because of failure to thrive symptoms. She is voicing concerns about whether she should continue to even pursue treatment, given the fact it would be palliative in nature. We did discuss in the context of her goals, she is feeling like treatment would "do no good". She is feeling quite horrible, part of the struggle is just getting to treatment, she does live in a second story apartment. She did drive herself, she does not perceive there is any way she is female drive herself home I would agree. She also is here by herself without any social support, her son does not appear to have any insight into this, and has not been of support for that. She does have her mother who would come and take care of her, but she is in [place] and [place] border at this point in time. We did discuss patient does have the choice to focus on comfort measures only, we did though put this in context that would mean her life expectancy would be weeks to months at the most, versus treatment which may improve her quality as well as quantity of life for months to possibly a year or 2. Currently though she is unable to tolerate treatment and less she has better symptom control, and better nutritional status. We did discuss hospice, with the goals would be comfort, no further hospitalization, but she would need a caregiver and support in the home to be able to have a safe caregiving plan. We did discuss in the context of her goals, that it is to focus on improving her quality of life, she would at this moment except reversible treatment options i.e. paracentesis, chemotherapy, antibiotics, but does not want her suffering prolonged. We did fill out a POLST with [facility] but selective treatments, and she would accept hospitalization at this point in time. She is heading to the emergency room, and hoping that they will keep her to assist with symptom management under control, improve hydration and nutritional support, as well as paracentesis. We did discuss Ruth CLOUD at this point in time it would fall to her son HARDIK CHAUHAN [phone] though he is only 19 years of age and has not been involved or realistic about her current situation. Results - Lab Results Lab results reviewed: Yes Lab and Imaging Results: She presents with an elevated WBC, and low potassium again. She does need correction. She certainly may have an underlying source of infection. Impression and Recommendations - Palliative Care Impression: This is a 40-year-old woman with metastatic colon cancer, who continues to present is failure to thrive, functional decline, and now with worsening ascites and elevated white count. She has minimal social support, is feeling overwhelmed to both by her physical symptoms as well as emotionally. Patient is to transition to ED for paracentesis, hopefully will be admitted for symptom control and work-up regarding her elevated white count. Patient also presents with hypokalemia, weakness, and significant concern for managing her current situation at home. Palliative care attempting to provide support and a very complex situation, will continue to provide support and anticipatory guidance through the continuum of care Recommendations/Counseling Done: 1.Candidiasis. Patient has been initiated on Diflucan, had been interfering with ability to eat, now she is unable to eat because of her worsening ascites. Her mouth does appear much better, as well as improvement of her mucositis. 2. Pain of neoplastic origin. Patient has been difficult time taking her hydrocodone, secondary to nausea and intermittent vomiting. She does have fairly severe pain with her abdominal fullness, had been evaluating for opioid use with the hope to transition to fentanyl. At this point time she remains opioid silvano, will need to continue to evaluate. 3. Diarrhea secondary to chemotherapy. This has improved, she does have the Lomotil. She reports currently today she had a regular BM. 4. Failure to thrive. This is multifactorial with an added complexity of poor social support, she has not been eating hardly anything, has been able to drink Gatorade, but continues with worsening symptom burden as well as worsening ascites. Patient will be transitioning to ED, hopefully will meet criteria for admission, does need to be stabilized for safe discharge and transition back home. 5. Metastatic colon cancer with liver mets. Unfortunately patient continues to decline, she is at her young age, still a candidate for further treatment, but currently under her condition she would not be able to tolerate this the burdens would outweigh the benefits. She is feeling quite poorly today, and wondering if she should continue with chemo, though we did discuss in the context of prognosis if she were to quit and transition to hospice it would be weeks to possibly months, versus treatment would be months to possibly year to 18 months. 6. Depression. This is exacerbated by her lack of her social support, her mother would be more than willing to come down to be a caregiver and provider support through her current situation, but is unable with the border situation with [place]. I am wondering though given the urgent situation if there might be some way to bypass this in an urgent way. We have explored various possible supports for her, reports her son is quite immature and very little insight to her current condition. Rest of her family is quite dysfunctional per her description. The hope would been she would meet with a social research assistant, to helps with this [place] application, patient has been given information multiple times, but she is too overwhelmed and is been too sick to follow through on any of this. 7. Advanced care planning. Patient is feeling overwhelmed, she is 21 and with not continuing any kind of treatment, recognizing the seriousness of her illness, we did discuss this is most likely not a good time to make these decisions. But patient was heading to ED we did have a discussion writing goals of care, we did complete a POLST with [facility], but she would accept hospitalization at this point in time and treatment of reversible conditions. Patient will need to revisit when she is feeling better hospice versus treatment question. Time Spent: 55 minutes with greater than 50% of this done in counseling regarding goals of care, anticipatory guidance, coordination of care with oncology team.
== END 2020-02-23 11:36 | disposition home or self-care (01) ==
LOC: PC 11:35
PROVIDERS: ATTEND Nurse Practitioner Adult Health
DX: Z51.5 Encounter for palliative care (principal); G89.3 Neoplasm related pain (acute) (chronic); R18.8 Other ascites; R53.1 Weakness; R53.0 Neoplastic (malignant) related fatigue; R11.2 Nausea with vomiting, unspecified; K52.1 Toxic gastroenteritis and colitis; T45.1X5A Adverse effect of antineoplastic and immunosuppressive drugs, initial encounter; F32.9 Major depressive disorder, single episode, unspecified; B37.0 Candidal stomatitis; R62.7 Adult failure to thrive; C18.9 Malignant neoplasm of colon, unspecified; C78.7 Secondary malignant neoplasm of liver and intrahepatic bile duct; Z79.899 Other long term (current) drug therapy; Z79.891 Long term (current) use of opiate analgesic; Z60.8 Other problems related to social environment; Z66 Do not resuscitate
CPT/HCPCS: 99215

== ENCOUNTER 2020-02-27 16:05 | Outpatient (CLI) | payer MEDICAID | END 2020-02-27 23:59 | disposition hospice, home (50) | LOC: EMS 16:05 | PROVIDERS: ATTEND Surgery | DX: Z74.01 Bed confinement status (principal) | CPT/HCPCS: A0425; A0428 ==